=== PATIENT | male | born 1940 | race Caucasian/White ===

== ENCOUNTER 2017-06-16 05:34 | Inpatient (IN) ==
[2017-06-09 10:58] LABS: Basophils % 1.1 % (0.0-0.8); Eosinophils # 0.1 10*3/uL (0.0-0.87); Eosinophils % 1.6 % (0.00-10.9); Hematocrit 36.1 VOL% (42.0-52.0); Hemoglobin 12.4 GM/DL (14.0-18.0); Lymphocytes # 1.9 10*3/uL (1.4-4.0); Lymphocytes % 49.2 % (21.2-54.2); Mean Corpuscular HGB Conc 34.3 GM/DL (32-36); Mean Corpuscular Hemoglobin 32 PG (27-34); Mean Corpuscular Volume 94.3 FL (87-102); Monocytes # 0.4 10*3/uL (0.11-0.8); Monocytes % 10.1 % (1.7-12.7); Neutrophils # 1.4 10*3/uL (1.4-7.4); Platelet Count 159 T/CUMM (130-400); Red Blood Count 3.83 MC/CUMM (3.8-5.5); Red Cell Distribution Width 14.2 % (9.3-17.3); White Blood Count 3.8 T/CUMM (4-12)
[2017-06-09 11:14] LABS: INR 3.6
[2017-06-09 11:25] LABS: Eosinophils 2 % (0-10); Hypochromasia 1+; Lymphocytes 46 % (20-55); Platelet Estimate Adequate; Segmented Neutrophils 41 % (50-85); Total Cells Counted 100
[2017-06-09 11:29] LABS: Apearance,Urine CLEAR (Clear); Bilirubin,Urine Negative (Negative); Blood, Urine Small mg/dL (Negative); Glucose,Urine (UA) Negative (Negative); Ketones,Urine Negative (Negative); Mucus,Urine Occasional /LPF (Occasional); Nitrite,Urine Negative (Negative); Protein,Urine Negative; RBC,Urine 1 /HPF (0-4); Urine Color Yellow (Yellow); Urine Specific Gravity 1.006 (1.001-1.035); Urine Urobilinogen < 2.0 EU/DL (0.2-1.0); WBC,Urine <1 /HPF (0-6)
[2017-06-09 11:33] LABS: PT Patient Result 41.2 SECS; Partial Thromboplastin Time 46.2 SECS (0-40)
[2017-06-09 11:37] LABS: Albumin 3.8 G/DL (3.4-5.0); Bilirubin,Total 0.4 MG/DL (0.2-1.0); Calcium 8.8 MG/DL (8.5-10.1); Osmolality,Calculated 279.5 MOS/KG (273-304); Potassium 4.3 MMOL/L (3.5-5.1); Total Protein 6.8 G/DL (6.4-8.3)
--- NOTE | 2017-06-09 12:37 | XRay Report ---
XR chest 2V Indication: Preop evaluation Comparison: Chest x-ray dated May 07, 2016 Technique: Frontal and lateral views of the chest. Findings: The cardiomediastinal silhouette is stable in configuration. Continued borderline cardiomegaly. Chronic change of the lungs without focal consolidation, pleural effusion, or pneumothorax. Visualized osseous and surrounding soft tissue structures appear grossly unchanged. IMPRESSION: Stable chest x-ray without acute cardiopulmonary process demonstrated. PROCEDURE INTERPRETED AT [facility] DEPARTMENT OF RADIOLOGY Final Report Signed by: Dr Kirby Russell
[2017-06-16] MEDS ORDERED: VANCOMYCIN INJ 1,000 MG in SODIUM CHLORIDE 0.9% 250 ML IV ONE (06:00)
[2017-06-16] MEDS ORDERED: VANCOMYCIN 1,000 MG VIAL ONE (06:05)
[2017-06-16] MEDS ORDERED: ceFAZolin 1,000 MG VIAL ONE (06:05)
[2017-06-16] MEDS ORDERED: SODIUM CHLORIDE 0.9% 100 ML IV ONE (06:05)
[2017-06-16 06:59] LABS: INR 1.1; PT Patient Result 11.6 SECS; Partial Thromboplastin Time 29.9 SECS (0-40)
--- NOTE | 2017-06-16 07:06 | History and Physical Update ---
History and Physical Update - History and Physical H&P was reviewed, the patient examined and there: are no changes in the patients condition since last H&P was completed.
[2017-06-16] MEDS: LACTATED RINGERS 1,000 ML IV SCH (08:00)
[2017-06-16] MEDS ORDERED: TRANEXAMIC ACID 1,000 MG/10 ML VIAL IV ONE (09:31)
[2017-06-16] MEDS ORDERED: ONDANSETRON 4 MG/2 ML VIAL ONE (10:20)
[2017-06-16] MEDS ORDERED: PROPOFOL 200 MG/20 ML VIAL IV ONE (10:20)
[2017-06-16] MEDS ORDERED: PHENYLEPHRINE 1 MG/10 ML SYRINGE IV ONE (10:20)
[2017-06-16] MEDS ORDERED: GLYCOPYRROLATE 0.4 MG/2 ML VIAL ONE (10:20)
[2017-06-16] MEDS ORDERED: ONDANSETRON 4 MG/2 ML VIAL IV PRN (10:33)
[2017-06-16] MEDS ORDERED: TEMAZEPAM 7.5 MG CAPSULE PO PRN (10:33)
[2017-06-16] MEDS ORDERED: MAGNESIUM HYDROXIDE SUSP 30 ML UDCUP PO PRN (10:33)
[2017-06-16] MEDS ORDERED: PROMETHAZINE 25 MG/1 ML VIAL IM PRN (10:33)
[2017-06-16] MEDS ORDERED: HYDROmorphone 2 MG/1 ML VIAL IV PRN (10:33)
[2017-06-16] MEDS ORDERED: BISACODYL 10 MG SUPP RECTAL PRN (10:33)
[2017-06-16] MEDS ORDERED: LACTULOSE 20 GM/30 ML UDCUP PO PRN (10:33)
[2017-06-16] MEDS ORDERED: NALOXONE 0.4 MG/ML VIAL IV PRN (10:33)
[2017-06-16] MEDS ORDERED: DEXTROSE 50% 25 GM/50 ML VIAL IV PRN (10:38)
[2017-06-16] MEDS ORDERED: GLUCAGON 1 MG VIAL IM PRN (10:38)
[2017-06-16] MEDS ORDERED: PRAVASTATIN 20 MG TABLET PO SCH (11:00)
[2017-06-16] MEDS: INSULIN REGULAR 100 UNIT/ML SUBCUT SCH ×3 (11:30→23:29)
[2017-06-16] MEDS ORDERED: MIDAZOLAM 2 MG/2 ML VIAL ONE (12:06)
[2017-06-16] MEDS ORDERED: fentaNYL 100 MCG/2 ML VIAL ONE (12:06)
[2017-06-16] MEDS ORDERED: ACETAMINOPHEN 1,000 MG/100 ML VIAL IV ONE (12:07)
[2017-06-16] MEDS: HYDROmorphone PCA 30 MG/30 ML SYRINGE IV SCH (12:13)
[2017-06-16] MEDS ORDERED: ROPIVACAINE 0.5% 30 ML VIAL ONE (12:13)
--- NOTE | 2017-06-16 12:48 | Anesthesia Post-Op ---
Anesthesia Post OP - Post Ansesthetic Evaluation Patient seen in post op: Yes Resp: within normal limits CV: within normal limits Mental: within normal limits Temp: within normal limits [id number]: within normal limits Nausea and Vomiting: within normal limits Pain: within normal limits
--- NOTE | 2017-06-16 14:46 | XRay Report ---
History: Postop joint replacement Date: 06/16/2017 Study: Right knee 2 views Comparison exam: July 14, 2011 The right knee prosthesis is well conjugated. There is no radiographic evidence of postsurgical complication. Surgical skin heather and drains overlie the soft tissues anterior to the knee. Impression: Postop right knee replacement PROCEDURE INTERPRETED AT [facility] DEPARTMENT OF RADIOLOGY Final Report Signed by: Dr. Jeanette Portillo
--- NOTE | 2017-06-16 14:48 | Cardiology Consult Note ---
Assessment and Plan - Time spent with patient Time spent with patient: Greater than 30 minutes (Documentation, examination, chart review and orders) (1) Paroxysmal atrial fibrillation Status: Chronic Current Visit: Yes (2) Coronary artery disease Status: Chronic Current Visit: No (3) History of percutaneous coronary intervention Status: Chronic Current Visit: No (4) Gastroesophageal reflux disease Status: Chronic Current Visit: No Qualifiers: Esophagitis presence: without esophagitis Qualified Code(s): K21.9 - Gastro -esophageal reflux disease without esophagitis (5) Dyslipidemia Status: Chronic Current Visit: No (6) Osteoarthritis Status: Chronic Current Visit: Yes Qualifiers: Osteoarthritis location: multiple joints Osteoarthritis type: primary Qualified Code(s): M15.0 - Primary generalized (osteo)arthritis (7) Status post total knee replacement, right Status: Acute Current Visit: Yes History of Present Illness - Data of Consult Patient: known to practice within the last 3 years Consult date: 06/16/17 Requesting Physician: Viktor Evans Jr. Primary care physician: Dexter Keys - Consult Narrative Reason for consult: Follow post op History of present illness: Mr. Anderson is a 76 year old male patient of Dr. Kiko Farley who is admitted for elective right total knee replacement for advanced osteoarthritis. He has known coronary disease and received a 2.5 x 24 mm Synergy overlapping with a 3.0 x 12 mm Synergy to the RCA after aspiration thrombectomy in April 2016. The patient's clopidogrel was held prior to the surgery. The patient also has atrial fibrillation. He is on warfarin anticoagulation. These anticoagulants have been resumed postoperatively. The patient denies any chest pain or shortness of breath. An uneventful perioperative course and also postoperatively on the floor. CC: Viktor Evans Jr., MD - Home Medications and Allergies Home Medications: Home Medications Medication Instructions Recorded Confirmed Type Furosemide Tab [Lasix Tab] 20 mg PO DAILY 07/02/15 06/16/17 History Gabapentin Cap/Tab [Neurontin 300 mg PO BID 07/02/15 06/16/17 History Cap/Tab] Multivitamin [Multivitamins] 1 each PO DAILY 07/02/15 06/16/17 History Potassium Chloride 10 meq PO DAILY 07/02/15 06/16/17 History Metoprolol Succinate 25 mg PO DAILY 05/06/16 06/16/17 History Clopidogrel [Plavix] 75 mg PO DAILY 06/09/17 06/16/17 History Cyanocobalamin (Vitamin B-12) 2,500 mcg PO DAILY 06/09/17 06/16/17 History [Vitamin B-12] Esomeprazole Magnesium [Nexium] 40 mg PO DAILY 06/09/17 06/16/17 History Metformin HCl 1,000 mg PO BID 06/09/17 06/16/17 History PARoxetine HCl [Paxil Cr] 25 mg PO DAILY 06/09/17 06/16/17 History Pravastatin [Pravachol] 40 mg PO BEDTIME 06/09/17 06/16/17 History Warfarin [Coumadin] 5 mg PO DAILY@1800 06/09/17 06/16/17 History Ferrous Sulfate Tab [Feosol 325 mg PO DAILY 06/16/17 06/16/17 History Original Tab] Allergies/Adverse Reactions: Allergies Allergy/AdvReac Type Severity Reaction Status Date / Time No Known Allergies Allergy Verified 06/16/17 07:28 - Constitutional Constitutional: Absent: anorexia, chills, frequent falls, headache(s), weakness , weight loss - EENT Eyes: Absent: blurry vision Nose, mouth and throat: Absent: dysphagia, epistaxis, lip swelling - Cardiovascular Cardiovascular: Absent: chest pain at rest, chest pain with activity, dyspnea, dyspnea on exertion, edema, orthopnea, palpitations - Respiratory Respiratory: Absent: dyspnea, dyspnea on exertion - Gastrointestinal Gastrointestinal: Absent: abdominal pain, bloating, fecal incontinence, heartburn, hematemesis, melena - Genitourinary Genitourinary: Absent: difficulty urinating, hematuria - Musculoskeletal Musculoskeletal: Present: arthralgias. Absent: joint swelling - Neurological Neurological: Absent: abnormal gait, disequilibrium, focal weakness, frequent falls, headache(s), memory loss - Psychiatric Psychiatric: Absent: anxiety, depression - Endocrine Endocrine: Absent: cold intolerance, heat intolerance - Hematologic/Lymphatic Hematologic/Lymphatic: Absent: easy bleeding, easy bruising Medical,Surgical,& Family Hx - Medical History Cardio: History of: Hypertension, CA (PCI the RCA after aspiration thrombectomy in April 2016), Cardiovascular Problems (Atrial fibrillation with chronic anticoagulation) Neurology: History of: Peripheral Neuropathy No history of: Seizures HEENT: History of: Ear Problem (HEARING AIDS.), Eye Problem (GLASSES), Dental Problems (UPPER DENTURE PARTIAL LOWER) Endocrine: History of: Diabetes Mellitus (NIDDM), Dyslipidemia Respiratory: History of: Obstructive Sleep Apnea (PT USES CPAP) Comment Only: Respiratory Problems (FLU VAC-YES; PNEU VAC- YES 2016.) Gastrointestinal: History of: GERD, Hemorrhoids (OCCASIONAL), GI Problems ( HITAL HERNIA) Musculoskeletal: History of: Back/Neck Problems (NECK PAIN OCCASIONAL.) Other: History of: Cancer (SKIN CA), MRSA (RT KNEE AND RT GROIN. 2013.) - Surgical History Cardiac Surgeries: Sugical HX of: Cardiac Catheterization (stent x 2 as per HPI) Thoracic Surgeries: Patient denies;: Lobectomy Neurologic Surgeries: Patient denies: Neurologic Surgery HEENT Surgeries: Surgical HX of: Eye Surgery (VASYL CATARACT SURGERY), Tonsilectomy & Adenoidectomy Abdominal Surgeries: Surgical HX of: Colonoscopy (DR RAHMAN), EGD Patient denies: Abdominal Surgery Orthopedic Surgeries: Surgical HX of;: Orthopedic Surgery (LEFT SHOULDER REPLACEMENT. DR DUTTON.), Total Knee Replacement (Right) - Family History Family History: Denies;: Family Anesthesia Reaction, Family Cancer, Family Diabetes, Family Heart Disease, Family Hypertension, Family Psychiatric Problems, Family Stroke - Social History Smoking Status: Never smoker Frequency of Alcohol Use: None Type of Drug Use: None Marital Status: Lives With:: Spouse Functional capacity: independent ambulation (Retired [employer]) Physical Examination Vital Signs Temp Pulse Resp BP Pulse Ox 97.9 F 57 L 20 115/67 96 06/16/17 07:44 06/16/17 07:44 06/16/17 07:44 06/16/17 07:44 06/16/17 07:44 General: Present: Appears Well HEENT: Present: PERRL, Mucus Membranes Moist. Absent: Jaundice Neck: Present: Supple Neck, Midline Trachea Cardiac: Present: Reg Rate and Rhythm Lungs: Present: Normal Exam Neuro: Present: Cranial Nerve 2-12 Intact Abdomen: Present: Soft, Active Bowel Sounds Skin: Present: Clear. Absent: Rash Extremities: Absent: Edema, Clubbing, Cyanosis Result/EKG - Labs CBC & BMP: 06/09/17 10:50 06/09/17 10:50 Labs: Laboratory Results - last 24 hr 06/16/17 06/16/17 06/16/17 06:34 06:34 06:36 INR 1.1 PT Patient/Control Mix 11.6 D Circ Anticoag PTT 29.9 D POC Glucose 123 H Blood Type A POSITIVE Antibody Screen Negative
--- NOTE | 2017-06-16 15:14 | EKG Report ---
Stationary ECG Study [facility] Test Date: 06/16/2017 3:17:24 PM Pat Name: CHEYENNE GOTTI Department: Room: 319 Gender: M Scrap Wheeler: : [id number] Requested by: Neville Fernández Order Number: [id number] Reading MD: CHADWICK LOZOYA Intervals [place] Rate: 47 P: 49 [place]: 192 QRS: 6 QRSD: 85 T: 55 QT: 448 QTc: 410 Interpretive Statements SINUS BRADYCARDIA LOW QRS VOLTAGE IN PRECORDIAL LEADS Electronically Signed On 06-17-17 12:30:35 CDT by CHADWICK LOZOYA [email or web address]
--- NOTE | 2017-06-16 16:54 | Operative Note ---
DATE OF SURGERY: 06/16/2017 PREOPERATIVE DIAGNOSIS: OSTEOARTHRITIS, RIGHT KNEE. POSTOPERATIVE DIAGNOSIS: SAME. OPERATIVE PROCEDURE: RIGHT TOTAL KNEE ([place]E). SURGEON: Viktor Evans Jr., MD ANESTHESIA: Spinal. INDICATIONS: A 76-year-old white male with longstanding osteoarthritis to his right knee. He is max imized conservative treatments to the years including oral agents as well as injections. He recently presented and felt to be a candidate for a total knee, presented in today for elective procedure. OPERATIVE PROCEDURE: The patient was taken to the operating room and under spinal anesthetic, positio laya in supine position. The right leg positioned, prepped, draped in a usual sterile manner. The li mb was elevated, exsanguinated, and the tourniquet inflated to 300 mmHg. A midline incision was made over the anterior aspect of the right knee. Sharp dissection was carried down through skin and subc utaneous tissue. A median parapatellar arthrotomy performed with the knee revealing extensive tricom partmental degenerative changes. Intramedullary alignment guides were used to make the appropriate c uts about the distal femur and proximal tibia. The femur was sized to a 7, the tibia to a 7 as well. A 7 mm poly spacer selected. The PCL retained. The patellar resurfaced with a 38 button. After r emoval of the trial components, all three implants were cemented into place. The knee was irrigated. The tourniquet deflated during wound closure at 43 minutes. It was closed over two 1/8th-inch Hemo vac drains in a standard fashion using #1 Vicryl for the arthrotomy, 2-0 Vicryl for the subcutaneous layer, and heather for skin. Sterile dressing applied. He was taken to recovery room in a stable co ndition.
[2017-06-16] MEDS: WARFARIN 5 MG TABLET PO SCH (18:03)
[2017-06-16] MEDS: ceFAZolin 2,000 MG in PREMIX 1 EACH IV SCH (18:04)
[2017-06-16] MEDS: metFORMIN 500 MG TABLET PO SCH (21:31)
[2017-06-16] MEDS: PRAVASTATIN 40 MG TABLET PO SCH (21:31)
[2017-06-16] MEDS: FONDAPARINUX 2.5 MG/0.5 ML SYRINGE SUBCUT SCH (21:31)
[2017-06-16] MEDS: GABAPENTIN 300 MG CAPSULE PO SCH (21:32)
[2017-06-16] MEDS: DOCUSATE SODIUM 100 MG CAPSULE PO SCH (21:32)
[2017-06-17] MEDS: ceFAZolin 2,000 MG in PREMIX 1 EACH IV SCH (02:32)
[2017-06-17] MEDS: LACTATED RINGERS 1,000 ML IV SCH ×2 (04:32→22:42)
[2017-06-17 06:55] LABS: Basophils % 0.3 % (0.0-0.8); Eosinophils % 0.2 % (0.00-10.9); Hematocrit 32.4 VOL% (42.0-52.0); Immature Granulocytes % 0.6 %; Immature Granulocytes Absolute 0.04 #; Lymphocytes # 1.2 10*3/uL (1.4-4.0); Mean Corpuscular Hemoglobin 32 PG (27-34); Mean Corpuscular Volume 95.3 FL (87-102); Mean Platelet Volume 11.3 FL (9.6-12.0); Monocytes # 0.7 10*3/uL (0.11-0.8); Monocytes % 10.4 % (1.7-12.7); Neutrophils # 4.6 10*3/uL (1.4-7.4); Neutrophils % 70.5 % (38.7-73.9); Platelet Count 157 T/CUMM (130-400); Red Cell Distribution Width 13.9 % (9.3-17.3); White Blood Count 6.6 T/CUMM (4-12)
[2017-06-17 07:21] LABS: Calcium 8.4 MG/DL (8.5-10.1); Osmolality,Calculated 282.5 MOS/KG (273-304); Potassium 4.3 MMOL/L (3.5-5.1)
--- NOTE | 2017-06-17 07:50 | Orthopedic Progress Note ---
Orthopedics - Subjective Interval history: Comfortable hemoglobin 11 drain removed ready to start PT discharge planning for rehab Exam - Constitutional Vitals: Period Temp Pulse Resp BP Sys/Turner Pulse Ox Last 24 Hr 97 F-97.9 F 46-71 14-20 106-129/58-75 94-100 Results - Labs CBC & BMP: 06/17/17 06:32 06/17/17 06:32
[2017-06-17] MEDS ORDERED: IRON 65 MG PO SCH (09:00)
[2017-06-17] MEDS ORDERED: PANTOPRAZOLE 40 MG TABLET PO SCH (09:00)
[2017-06-17] MEDS ORDERED: PAXIL 25 MG PO SCH (09:00)
--- NOTE | 2017-06-17 09:59 | Cardiology Progress Note ---
Assessment and Plan (1) Paroxysmal atrial fibrillation Status: Chronic Current Visit: Yes (2) Coronary artery disease Status: Chronic Assessment and plan: No chest pain or heart failure decompensation Current Visit: No Qualifiers: Coronary Disease-Associated Artery/Lesion type: [place] artery (3) History of percutaneous coronary intervention Status: Chronic Assessment and plan: Back on dual antiplatelet therapy Current Visit: No (4) Gastroesophageal reflux disease Status: Chronic Current Visit: No Qualifiers: Esophagitis presence: without esophagitis Qualified Code(s): K21.9 - Gastro -esophageal reflux disease without esophagitis (5) Dyslipidemia Status: Chronic Current Visit: No (6) Osteoarthritis Status: Chronic Current Visit: Yes Qualifiers: Osteoarthritis location: multiple joints Osteoarthritis type: primary Qualified Code(s): M15.0 - Primary generalized (osteo)arthritis (7) Status post total knee replacement, right Status: Acute Current Visit: Yes Cardiology - PN: Subj Interval history: Mr. Anderson is complaining today that he is having some myoclonic jerks. This is new for him. I will review his medications and see if there is anything that may be contributing. No other complaints no chest pain no shortness of breath. Exam (Progress Note) - Constitutional Vitals: Period Temp Pulse Resp BP Sys/Turner Pulse Ox Last 24 Hr 97 F-97.9 F 46-71 14-20 106-129/58-75 94-100 General appearance: over weight - Eye Eye exam: Present: EOMI Pupils: Present: ANGEL - Respiratory Respiratory exam: Present: clear to auscultation bilaterally - Cardiovascular Cardiovascular exam: Present: regular rate and rhythm (No gallop.) - GI/Abdominal GI/Abdominal exam: Present: normal bowel sounds - Neurological Exam Neurological exam: Present: alert, oriented X3, other (Foot and hand tremor course) - Psychiatric Psychiatric exam: Present: normal affect Result/EKG - Labs CBC & BMP: 06/17/17 06:32 06/17/17 06:32 Labs: Laboratory Results - last 24 hr 06/16/17 06/16/17 06/17/17 16:45 21:01 06:32 WBC 6.6 RBC 3.40 L Hgb 11.0 L Hct 32.4 L MCV 95.3 MCH 32 MCHC 34.0 RDW 13.9 Plt Count 157 MPV 11.3 Neut % (Auto) 70.5 Lymph % (Auto) 18.0 L [place] % (Auto) 10.4 Eos % (Auto) 0.2 Baso % (Auto) 0.3 Neut # (Auto) 4.6 Lymph # (Auto) 1.2 L [place] # (Auto) 0.7 Eos # (Auto) 0.0 Baso # (Auto) 0.0 Immature Gran % 0.6 Nucleated RBC % 0.0 Immature Gran # 0.04 Nucleated RBCs # 0.00 Sodium Potassium Chloride Carbon Dioxide Anion Gap BUN Creatinine GFR Calculation BUN/Creatinine Ratio Glucose POC Glucose 83 147 H Calculated Osmolality Calcium 06/17/17 06/17/17 06:32 07:12 WBC RBC Hgb Hct MCV MCH MCHC RDW Plt Count MPV Neut % (Auto) Lymph % (Auto) [place] % (Auto) Eos % (Auto) Baso % (Auto) Neut # (Auto) Lymph # (Auto) [place] # (Auto) Eos # (Auto) Baso # (Auto) Immature Gran % Nucleated RBC % Immature Gran # Nucleated RBCs # Sodium 139 Potassium 4.3 Chloride 104 Carbon Dioxide 30 Anion Gap 9.3 BUN 21 H Creatinine 0.90 GFR Calculation 96 BUN/Creatinine Ratio 23.00 H Glucose 145 H POC Glucose 214 H Calculated Osmolality 282.5 Calcium 8.4 L
[2017-06-17] MEDS: INSULIN REGULAR 100 UNIT/ML SUBCUT SCH ×4 (10:13→21:15)
[2017-06-17] MEDS: FERROUS SULFATE 325 MG TABLET PO SCH (10:16)
[2017-06-17] MEDS: CYANOCOBALAMIN 500 MCG TABLET PO SCH (10:16)
[2017-06-17] MEDS: metFORMIN 500 MG TABLET PO SCH ×2 (10:16→21:16)
[2017-06-17] MEDS: CLOPIDOGREL 75 MG TABLET PO SCH (10:16)
[2017-06-17] MEDS: MULTIVITAMIN (CENTRUM) TABLET PO SCH (10:16)
[2017-06-17] MEDS: DOCUSATE SODIUM 100 MG CAPSULE PO SCH ×2 (10:16→21:17)
[2017-06-17] MEDS: METOPROLOL SUCCINATE XL 25 MG TABLET PO SCH (10:16)
[2017-06-17] MEDS: POTASSIUM CHLORIDE 10 MEQ TABLET PO SCH (10:17)
[2017-06-17] MEDS: FUROSEMIDE 20 MG TABLET PO SCH (10:18)
[2017-06-17] MEDS: GABAPENTIN 300 MG CAPSULE PO SCH ×2 (10:18→21:16)
[2017-06-17] MEDS ORDERED: GLUCAGON 1 MG VIAL IM PRN (11:22)
[2017-06-17] MEDS ORDERED: DEXTROSE 50% 25 GM/50 ML VIAL IV PRN (11:22)
--- NOTE | 2017-06-17 11:27 | Pathology Report from [facility] ---
[facility] [place] ACCESSION # : [id number] PATIENT NAME : Ana María Cheyenne Troy ORDERING DR : MUNA CASTELLANO JR, MD CLINICAL HX: Severe osteoarthritis POST-OP DX: Same SPECIMEN INFO: Bone & tissue RT knee GROSS DESCRIPTION: Received in formalin labeled CHEYENNE GOTTI are multiple fragments of bone, soft tissue and cartilage measuring 15.0 x 7.0 cm in aggregate. The articular surfaces are focally degenerative with areas of subchondral eburnation seen. Sales Engineering Manager tissue is submitted in one cassette. DIAGNOSIS FOR CHEYENNE SABILLONSR. Jaylene: BONE & TISSUE RIGHT KNEE, TOTAL REPLACEMENT : Osteoarthritis. COLLECTED DATE: 06/16/2017 [facility] REPORT DATE: 06/17/2017 ELECTRONICALLY SIGNED BY: Josefina Rooney M.D. 06/17/2017 - 9:58:52 [facility]
[2017-06-17] MEDS: HYDROmorphone PCA 30 MG/30 ML SYRINGE IV SCH (13:15)
[2017-06-17] MEDS: WARFARIN 5 MG TABLET PO SCH (17:44)
[2017-06-17] MEDS: PRAVASTATIN 40 MG TABLET PO SCH (21:17)
[2017-06-17] MEDS: FONDAPARINUX 2.5 MG/0.5 ML SYRINGE SUBCUT SCH (21:17)
[2017-06-18] MEDS ORDERED: PANTOPRAZOLE 40 MG TABLET PO ONE (00:05)
[2017-06-18] MEDS: LACTATED RINGERS 1,000 ML IV SCH (01:50)
[2017-06-18 05:51] LABS: Basophils % 0.3 % (0.0-0.8); Eosinophils % 0.2 % (0.00-10.9); Hematocrit 28.7 VOL% (42.0-52.0); Hemoglobin 9.8 GM/DL (14.0-18.0); Immature Granulocytes % 0.5 %; Immature Granulocytes Absolute 0.03 #; Lymphocytes # 1.1 10*3/uL (1.4-4.0); Mean Corpuscular HGB Conc 34.1 GM/DL (32-36); Mean Corpuscular Hemoglobin 32 PG (27-34); Mean Corpuscular Volume 94.7 FL (87-102); Mean Platelet Volume 11.7 FL (9.6-12.0); Monocytes # 1.1 10*3/uL (0.11-0.8); Monocytes % 16.6 % (1.7-12.7); Neutrophils # 4.3 10*3/uL (1.4-7.4); Neutrophils % 65.4 % (38.7-73.9); Platelet Count 147 T/CUMM (130-400); Red Blood Count 3.03 MC/CUMM (3.8-5.5); Red Cell Distribution Width 13.6 % (9.3-17.3); White Blood Count 6.6 T/CUMM (4-12)
[2017-06-18 06:17] LABS: Hypochromasia 1+; Lymphocytes 23 % (20-55); Platelet Estimate Normal; Segmented Neutrophils 65 % (50-85); Total Cells Counted 100
[2017-06-18 06:18] LABS: Microcytosis Slight
[2017-06-18] MEDS: INSULIN REGULAR 100 UNIT/ML SUBCUT SCH ×4 (07:29→21:10)
[2017-06-18] MEDS: CYANOCOBALAMIN 500 MCG TABLET PO SCH (09:44)
[2017-06-18] MEDS: PANTOPRAZOLE 40 MG TABLET PO SCH (09:44)
[2017-06-18] MEDS: CLOPIDOGREL 75 MG TABLET PO SCH (09:44)
[2017-06-18] MEDS: DOCUSATE SODIUM 100 MG CAPSULE PO SCH ×2 (09:44→22:19)
[2017-06-18] MEDS: FERROUS SULFATE 325 MG TABLET PO SCH (09:45)
[2017-06-18] MEDS: FUROSEMIDE 20 MG TABLET PO SCH (09:45)
[2017-06-18] MEDS: METOPROLOL SUCCINATE XL 25 MG TABLET PO SCH (09:45)
[2017-06-18] MEDS: metFORMIN 500 MG TABLET PO SCH ×2 (09:45→22:19)
[2017-06-18] MEDS: GABAPENTIN 300 MG CAPSULE PO SCH ×2 (09:46→22:20)
[2017-06-18] MEDS: MULTIVITAMIN (CENTRUM) TABLET PO SCH (09:46)
[2017-06-18] MEDS: POTASSIUM CHLORIDE 10 MEQ TABLET PO SCH (09:46)
--- NOTE | 2017-06-18 10:22 | Orthopedic Progress Note ---
Orthopedics - Subjective Interval history: Progressing well with PT H&H stable dressing dry instructed to rehab tomorrow Exam - Constitutional Vitals: Period Temp Pulse Resp BP Sys/Turner Pulse Ox Last 24 Hr 97.9 F-101.3 F 69-80 16-20 116-144/63-96 90-95 Results - Labs CBC & BMP: 06/18/17 04:41 06/17/17 06:32
--- NOTE | 2017-06-18 10:24 | Discharge Summary ---
Hospital Course - Hospital Course Hospital Course: Elective admission for total knee arthroplasty on right discharged to rehab Diagnosis - Discharge Diagnosis (1) Osteoarthritis of right knee Status: Acute Discharge Plan - Discharge Data Disposition: Swing Bed, Hos Based, [facility] [place] Discharge Diet: advance to your usual diet Activity: ambulate only with your walker, as per physical therapy, increase activity as tolerated Hygiene: may shower, keep area(s) dry Weight Bearing at Discharge: weight bear as tolerated - Discharge Medications New HYDROcodone/ACETAMIN 7.5-325 [[place] 7.5-325] 1 tablet PO Q4H PRN #30 tablet PRN Reason: Pain Moderate (4-7) Continue Multivitamin [Multivitamins] 1 each PO DAILY Gabapentin Cap/Tab [Neurontin Cap/Tab] 300 mg PO BID Furosemide Tab [Lasix Tab] 20 mg PO DAILY Potassium Chloride 10 meq PO DAILY Metoprolol Succinate 25 mg PO DAILY Cyanocobalamin (Vitamin B-12) [Vitamin B-12] 2,500 mcg PO DAILY PARoxetine HCl [Paxil Cr] 25 mg PO DAILY Esomeprazole Magnesium [Nexium] 40 mg PO DAILY Clopidogrel [Plavix] 75 mg PO DAILY Warfarin [Coumadin] 5 mg PO DAILY@1800 Pravastatin [Pravachol] 40 mg PO BEDTIME Metformin HCl 1,000 mg PO BID Ferrous Sulfate Tab [Feosol Original Tab] 325 mg PO DAILY - Follow Up or Referral - Forms/Instructions Additional Discharge Instructions: Discharge or rehab/swing bed continue home medications including his warfarin. [place] to be used for pain weightbearing as tolerated total knee protocol with walker CPM heather to be removed June 30 and wound Steri-Stripped. Follow-up 4 weeks Exam - Constitutional Vitals: Period Temp Pulse Resp BP Sys/Turner Pulse Ox Last 24 Hr 97.9 F-101.3 F 69-80 16-20 116-144/63-96 90-95 Discharge Results Labs on day of discharge: Labs from last 24 hours 06/18/17 06/18/17 06/17/17 07:03 04:41 20:07 WBC 6.6 RBC 3.03 L Hgb 9.8 L Hct 28.7 L MCV 94.7 MCH 32 MCHC 34.1 RDW 13.6 Plt Count 147 MPV 11.7 Neut % (Auto) 65.4 Lymph % (Auto) 17.0 L [place] % (Auto) 16.6 H Eos % (Auto) 0.2 Baso % (Auto) 0.3 Neut # (Auto) 4.3 Lymph # (Auto) 1.1 L [place]lin # (Auto) 1.1 H Eos # (Auto) 0.0 Baso # (Auto) 0.0 Total Counted 100 Immature Gran % 0.5 Nucleated RBC % 0.0 Immature Gran # 0.03 Segmented Neutrophils 65 Lymphocytes 23 Monocytes 12 Nucleated RBCs # 0.00 Platelet Estimate Normal Hypochromasia 1+ Microcytosis Slight Morphology Comment POC Glucose 134 H 107 H 06/17/17 06/17/17 15:26 11:28 WBC RBC Hgb Hct MCV MCH MCHC RDW Plt Count MPV Neut % (Auto) Lymph % (Auto) [place]lin % (Auto) Eos % (Auto) Baso % (Auto) Neut # (Auto) Lymph # (Auto) Collin # (Auto) Eos # (Auto) Baso # (Auto) Total Counted Immature Gran % Nucleated RBC % Immature Gran # Segmented Neutrophils Lymphocytes Monocytes Nucleated RBCs # Platelet Estimate Hypochromasia Microcytosis Morphology Comment POC Glucose 134 H 174 H DS: Provider Date of admission: 06/16/17 05:34 Primary care physician: Jessica De La Cruz NP Attending physician on admission: Viktor Evans Jr., MD Consults: 06/16/17 10:33 Consult to Case Mgmt/Social Srvs [CONS] Routine Reason for Case Mgmt/Social Srvs: Rehab Home Health Equipment Consult Comment: Bedside Commode, CPM, Walker Consult to Occupational Therapy [CONS] Routine Reason for Occupational Therapy: Evaluate and Treat Consult Comment: ADL's Consult to Physical Therapy [CONS] Routine Reason for Physical Therapy: Evaluate and Treat Gait Training 06/16/17 10:35 Consult to Physician [CONS] Routine Comment: Consulting Provider: Maximiliano Farley Consulting Provider Notified: Yes When should Consulting Provider be notified: Now Person Notified: shirlene whyte Date Notified: 06/16/17 Time Notified: 13:11 Discharging clinician: Viktor Evans Jr., MD
--- NOTE | 2017-06-18 17:37 | Cardiology Progress Note ---
Justin Amato Vanessa RN, am scribing for, and in the presence of, Fina Villalba DO 17 :37. Assessment and Plan - Time spent with patient Time spent with patient: Greater than 30 minutes (1) Status post total knee replacement, right Status: Acute Assessment and plan: Status post total right knee replacement per Dr. Evans. Patient is not having any anginal complaint postoperatively. Both Plavix and Coumadin have been resumed postoperatively. Current Visit: Yes (2) Paroxysmal atrial fibrillation Status: Chronic Assessment and plan: EKG has demonstrated sinus rhythm this admit. He is maintained with beta- danuta and anticoagulated with Coumadin for stroke prevention. Current Visit: Yes (3) Coronary artery disease Status: Chronic Assessment and plan: Patient is not having any anginal complaint. Continue Plavix, statin, beta- danuta. Current Visit: No Qualifiers: Coronary Disease-Associated Artery/Lesion type: [place] artery (4) Dyslipidemia Status: Chronic Assessment and plan: Statin has been continued. Current Visit: No (5) Gastroesophageal reflux disease Status: Chronic Assessment and plan: Stable. He does not take a routine PPI. Current Visit: No Qualifiers: Esophagitis presence: without esophagitis Qualified Code(s): K21.9 - Gastro -esophageal reflux disease without esophagitis (6) History of percutaneous coronary intervention Status: Chronic Assessment and plan: Continue current plan of care. Patient is not having any anginal complaint. Current Visit: No Cardiology - PN: Subj Interval history: PRIMARY QUALITY ASSURANCE TEST PROGRAM MANAGER: DR. MATIAS SUMMARY: Mr. Anderson is a 76-year-old white male with whose past medical history includes CAD and previous percutaneous coronary intervention in April 2016, paroxysmal atrial fibrillation, chronic anticoagulation, hypertension, dyslipidemia, osteoarthritis. He was admitted on June 16 for elective total right knee replacement due to advancement of OA. Patient had uneventful intraoperative and perioperative course. Plavix and Coumadin were both held preoperatively, and both anticoagulants have been resumed postoperatively. Cardiology was asked to see patient for cardiac medical management in the perioperative period. May: Patient is awake and alert this morning. No acute changes or new findings in hemodynamic status overnight. Temperature last night up to 101.3F, improved today with most recent 98.7F. Vitals otherwise stable. He is completing PT this morning, and he is not having any anginal complaint. Surgical discomfort is overall well controlled with pain medication. Patient is not having any further myoclonic jerks or complaints related to this today. Reports he is currently experiencing chills. Hemoglobin with slight decrease from 11 to 9 today. From a cardiac standpoint, patient appears to be doing well overall. He has no complaints and anticipating discharge soon. Plan on checking INR tomorrow morning Exam (Progress Note) - Constitutional Vitals: Period Temp Pulse Resp BP Sys/Turner Pulse Ox Last 24 Hr 97.9 F-101.3 F 69-80 16-20 116-144/63-96 90-95 General appearance: no acute distress, over weight - Head Head exam: Present: normal inspection. Absent: abrasion, contusion, hematoma - Eye Eye exam: Absent: periorbital swelling Pupils: Present: ANGEL. Absent: dilated, fixed - ENT ENT exam: Present: normal external ear exam - Neck Neck exam: Absent: tenderness - Respiratory Respiratory exam: Present: clear to auscultation bilaterally. Absent: rales, rhonchi, stridor, wheezes - Cardiovascular Cardiovascular exam: Present: regular rate and rhythm. Absent: JVD, systolic murmur - GI/Abdominal GI/Abdominal exam: Present: normal bowel sounds, rebound. Absent: ascites, distended, firm, mass, tenderness - Extremities Exam Extremities exam: Present: normal inspection, normal capillary refill, full ROM (Altered ROM of right lower extremity due to recent knee replacement), other ( Right knee surgical dressing dry/intact). Absent: calf tenderness, edema - Neurological Exam Neurological exam: Present: alert, oriented X3 - Psychiatric Psychiatric exam: Present: normal affect, normal mood. Absent: agitated, anxious, depressed - Skin Skin exam: Present: normal color, warm, dry. Absent: abrasion, cyanosis, diaphoretic, rash Result/EKG - Labs CBC & BMP: 06/18/17 04:41 06/17/17 06:32 Lab Results: I have reviewed the past 24 hour labs Labs: Laboratory Results - last 24 hr 06/17/17 06/17/17 06/17/17 11:28 15:26 20:07 WBC RBC Hgb Hct MCV MCH MCHC RDW Plt Count MPV Neut % (Auto) Lymph % (Auto) [place] % (Auto) Eos % (Auto) Baso % (Auto) Neut # (Auto) Lymph # (Auto) [place] # (Auto) Eos # (Auto) Baso # (Auto) Total Counted Immature Gran % Nucleated RBC % Immature Gran # Segmented Neutrophils Lymphocytes Monocytes Nucleated RBCs # Platelet Estimate Hypochromasia Microcytosis Morphology Comment POC Glucose 174 H 134 H 107 H 06/18/17 06/18/17 04:41 07:03 WBC 6.6 RBC 3.03 L Hgb 9.8 L Hct 28.7 L MCV 94.7 MCH 32 MCHC 34.1 RDW 13.6 Plt Count 147 MPV 11.7 Neut % (Auto) 65.4 Lymph % (Auto) 17.0 L [place] % (Auto) 16.6 H Eos % (Auto) 0.2 Baso % (Auto) 0.3 Neut # (Auto) 4.3 Lymph # (Auto) 1.1 L [place] # (Auto) 1.1 H Eos # (Auto) 0.0 Baso # (Auto) 0.0 Total Counted 100 Immature Gran % 0.5 Nucleated RBC % 0.0 Immature Gran # 0.03 Segmented Neutrophils 65 Lymphocytes 23 Monocytes 12 Nucleated RBCs # 0.00 Platelet Estimate Normal Hypochromasia 1+ Microcytosis Slight Morphology Comment POC Glucose 134 H - EKG EKG results: interpreted by me, no acute changes EKG shows: sinus rhythm Specialty Discharge - Follow Up or Referrals Follow up with: Viktor Evans Jr., MD [Physician] - 07/20/17 9:00 am IOrly Shea, DO, personally performed the services described in this documentation, ascribed by Mita Anderson RN in my presence, and it is both accurate and complete [id number] .
[2017-06-18] MEDS: WARFARIN 5 MG TABLET PO SCH (18:36)
[2017-06-18] MEDS: PRAVASTATIN 40 MG TABLET PO SCH (22:19)
[2017-06-19 05:15] LABS: INR 1.1; PT Patient Result 11.6 SECS
[2017-06-19] MEDS: INSULIN REGULAR 100 UNIT/ML SUBCUT SCH ×2 (07:30→11:00)
[2017-06-19] MEDS ORDERED: DEXTROSE 50% 25 GM/50 ML SYRINGE IV PRN (08:00)
--- NOTE | 2017-06-19 08:00 | Orthopedic Progress Note ---
Orthopedics - Subjective Interval history: Comfortable. Dressing clean, dry and intact. Right lower extremity neurovascularly change. Plan: Discharge to [facility] today. Exam - Constitutional Vitals: Period Temp Pulse Resp BP Sys/Turner Pulse Ox Last 24 Hr 97.3 F-99.3 F 70-83 18-20 117-142/63-78 90-100 Results - Labs CBC & BMP: 06/18/17 04:41 06/17/17 06:32 Specialty Discharge - Follow Up or Referrals Follow up with: Viktor Evans Jr., MD [Physician] - 07/20/17 9:00 am
[2017-06-19] MEDS: MULTIVITAMIN (CENTRUM) TABLET PO SCH (09:14)
[2017-06-19] MEDS: DOCUSATE SODIUM 100 MG CAPSULE PO SCH (09:14)
[2017-06-19] MEDS: FERROUS SULFATE 325 MG TABLET PO SCH (09:14)
[2017-06-19] MEDS: CLOPIDOGREL 75 MG TABLET PO SCH (09:15)
[2017-06-19] MEDS: metFORMIN 500 MG TABLET PO SCH (09:15)
[2017-06-19] MEDS: GABAPENTIN 300 MG CAPSULE PO SCH (09:15)
[2017-06-19] MEDS: FUROSEMIDE 20 MG TABLET PO SCH (09:15)
[2017-06-19] MEDS: POTASSIUM CHLORIDE 10 MEQ TABLET PO SCH (09:15)
[2017-06-19] MEDS: CYANOCOBALAMIN 500 MCG TABLET PO SCH (09:16)
[2017-06-19] MEDS: METOPROLOL SUCCINATE XL 25 MG TABLET PO SCH (09:16)
[2017-06-19] MEDS: PANTOPRAZOLE 40 MG TABLET PO SCH (09:16)
[2017-06-19 11:43] VITALS: BP 122/68
== END 2017-06-19 11:25 | disposition swing bed (61) | DRG 470 ==
LOC: N.SDSINP 05:34 → N.3E 12:52
PROVIDERS: ADMIT Orthopaedic Surgery; ATTEND Orthopaedic Surgery

== ENCOUNTER 2018-05-06 13:19 | Inpatient (IN) ==
[2018-05-06] MEDS ORDERED: VANCOMYCIN INJ 1,000 MG in SODIUM CHLORIDE 0.9% 250 ML IV STA (13:41)
[2018-05-06] MEDS ORDERED: KETOROLAC 30 MG/1 ML VIAL IV STA (13:41)
[2018-05-06 14:09] LABS: Basophils % 0.2 % (0.0-0.8); Hematocrit 37.7 VOL% (42.0-52.0); Hemoglobin 12.8 GM/DL (14.0-18.0); Immature Granulocytes % 0.6 %; Immature Granulocytes Absolute 0.06 #; Lymphocytes # 1.8 10*3/uL (1.4-4.0); Lymphocytes % 17.4 % (21.2-54.2); Mean Corpuscular Hemoglobin 33 PG (27-34); Mean Corpuscular Volume 96.4 FL (87-102); Mean Platelet Volume 11.2 FL (9.6-12.0); Monocytes # 0.8 10*3/uL (0.11-0.8); Neutrophils # 7.5 10*3/uL (1.4-7.4); Neutrophils % 73.8 % (38.7-73.9); Platelet Count 173 T/CUMM (130-400); Red Blood Count 3.91 MC/CUMM (3.8-5.5); Red Cell Distribution Width 14.6 % (9.3-17.3); White Blood Count 10.1 T/CUMM (4-12)
[2018-05-06 14:19] LABS: INR 1.9; PT Patient Result 19.6 SECS; Partial Thromboplastin Time 38.3 SECS (0-40)
[2018-05-06 14:30] LABS: Lactic Acid 5.1 MMOL/L (0.4-2.0)
[2018-05-06 14:37] LABS: Band Neutrophils 6 % (0-10); Lymphocytes 15 % (20-55); Segmented Neutrophils 71 % (50-85); Total Cells Counted 100; Troponin I Only < 0.015 NG/ML (0.00-0.045)
[2018-05-06 14:39] LABS: Platelet Estimate Normal
[2018-05-06] MEDS ORDERED: SODIUM CHLORIDE 0.9% 1,000 ML IV STA (14:47)
[2018-05-06 15:23] LABS: Albumin 3.3 G/DL (3.4-5.0); Calcium 8.7 MG/DL (8.5-10.1); Osmolality,Calculated 276.1 MOS/KG (273-304); Potassium 4.1 MMOL/L (3.5-5.1); Total Protein 7.5 G/DL (6.4-8.3)
[2018-05-06] MEDS ORDERED: DEXTROSE 50% 25 GM/50 ML VIAL IV PRN (16:23)
[2018-05-06] MEDS ORDERED: ONDANSETRON 4 MG/2 ML VIAL IV PRN (16:23)
[2018-05-06] MEDS ORDERED: GLUCAGON 1 MG VIAL IM PRN (16:23)
[2018-05-06] MEDS ORDERED: SODIUM CHLORIDE 0.9% 2,600 ML IV ONE (16:28)
[2018-05-06] MEDS ORDERED: WARFARIN 7.5 MG TABLET PO SCH (18:30)
[2018-05-06] MEDS ORDERED: NON-FORMULARY MEDICATION (Cyanocobalamin (Vitamin B-12) [Vitamin B-12] 2,500 MCG) PO SCH (19:00)
[2018-05-06] MEDS: PIPERACILLIN/TAZOBACTAM 3,375 MG in SODIUM CHLORIDE 0.9% 100 ML IV SCH (19:04)
[2018-05-06] MEDS: INSULIN REGULAR 100 UNIT/ML SUBCUT SCH ×2 (19:04→20:45)
[2018-05-06] MEDS: GABAPENTIN 300 MG CAPSULE PO SCH (19:04)
[2018-05-06 19:45] LABS: Lactic Acid 2.4 MMOL/L (0.4-2.0)
[2018-05-06] MEDS: metFORMIN 500 MG TABLET PO SCH (20:44)
[2018-05-06] MEDS: PRAVASTATIN 40 MG TABLET PO SCH (20:44)
[2018-05-06] MEDS: FERROUS SULFATE 325 MG TABLET PO SCH (20:44)
[2018-05-06] MEDS ORDERED: GENTAMICIN INJ 160 MG in SODIUM CHLORIDE 0.9% 100 ML IV SCH (22:00)
[2018-05-07] MEDS: PIPERACILLIN/TAZOBACTAM 3,375 MG in SODIUM CHLORIDE 0.9% 100 ML IV SCH ×3 (01:02→18:45)
[2018-05-07 05:29] LABS: Basophils % 0.3 % (0.0-0.8); Hematocrit 31.7 VOL% (42.0-52.0); Hemoglobin 10.4 GM/DL (14.0-18.0); Immature Granulocytes % 0.3 %; Immature Granulocytes Absolute 0.02 #; Lymphocytes # 1.1 10*3/uL (1.4-4.0); Lymphocytes % 15.7 % (21.2-54.2); Mean Corpuscular HGB Conc 32.8 GM/DL (32-36); Mean Corpuscular Hemoglobin 32 PG (27-34); Mean Corpuscular Volume 96.9 FL (87-102); Mean Platelet Volume 11.1 FL (9.6-12.0); Monocytes # 0.5 10*3/uL (0.11-0.8); Monocytes % 7.8 % (1.7-12.7); Neutrophils # 5.1 10*3/uL (1.4-7.4); Neutrophils % 75.9 % (38.7-73.9); Platelet Count 138 T/CUMM (130-400); Red Blood Count 3.27 MC/CUMM (3.8-5.5); Red Cell Distribution Width 14.6 % (9.3-17.3); White Blood Count 6.7 T/CUMM (4-12)
[2018-05-07 05:50] LABS: Calcium 7.8 MG/DL (8.5-10.1); Osmolality,Calculated 278.8 MOS/KG (273-304); Potassium 3.7 MMOL/L (3.5-5.1)
[2018-05-07 05:53] LABS: Band Neutrophils 28 % (0-10); Lymphocytes 12 % (20-55); Segmented Neutrophils 51 % (50-85); Total Cells Counted 100
[2018-05-07] MEDS: INSULIN REGULAR 100 UNIT/ML SUBCUT SCH ×4 (08:14→21:11)
[2018-05-07] MEDS: PANTOPRAZOLE 40 MG TABLET PO SCH (08:15)
[2018-05-07] MEDS ORDERED: PANTOPRAZOLE 40 MG TABLET PO SCH (09:00)
[2018-05-07] MEDS: POTASSIUM CHLORIDE 10 MEQ TABLET PO SCH (09:15)
[2018-05-07] MEDS: MULTIVITAMIN (CENTRUM) TABLET PO SCH (09:15)
[2018-05-07] MEDS: MAGNESIUM OXIDE 400 MG TABLET PO SCH (09:15)
[2018-05-07] MEDS: METOPROLOL SUCCINATE XL 25 MG TABLET PO SCH (09:16)
[2018-05-07] MEDS: metFORMIN 500 MG TABLET PO SCH ×2 (09:16→21:08)
[2018-05-07] MEDS: FUROSEMIDE 20 MG TABLET PO SCH (09:16)
[2018-05-07] MEDS: ASPIRIN EC 81 MG TABLET PO SCH (09:16)
[2018-05-07] MEDS: PARoxetine 10 MG TABLET PO SCH (09:17)
[2018-05-07] MEDS ORDERED: VANCOMYCIN INJ 1,250 MG in SODIUM CHLORIDE 0.9% 250 ML IV SCH (12:00)
[2018-05-07 18:30] LABS: INR 1.5; PT Patient Result 15.8 SECS
[2018-05-07] MEDS: GABAPENTIN 300 MG CAPSULE PO SCH (18:44)
[2018-05-07] MEDS: WARFARIN 5 MG TABLET PO SCH (18:44)
[2018-05-07] MEDS: FERROUS SULFATE 325 MG TABLET PO SCH (21:08)
[2018-05-07] MEDS: PRAVASTATIN 40 MG TABLET PO SCH (21:08)
[2018-05-08] MEDS: VANCOMYCIN INJ 1,250 MG in SODIUM CHLORIDE 0.9% 250 ML IV SCH ×2 (00:31→13:00)
[2018-05-08] MEDS: PIPERACILLIN/TAZOBACTAM 3,375 MG in SODIUM CHLORIDE 0.9% 100 ML IV SCH ×2 (03:00→09:07)
[2018-05-08 05:29] LABS: Basophils % 0.5 % (0.0-0.8); Eosinophils # 0.1 10*3/uL (0.0-0.87); Eosinophils % 0.9 % (0.00-10.9); Hematocrit 31.2 VOL% (42.0-52.0); Hemoglobin 10.6 GM/DL (14.0-18.0); Immature Granulocytes % 0.8 %; Immature Granulocytes Absolute 0.05 #; Lymphocytes # 1.3 10*3/uL (1.4-4.0); Lymphocytes % 19.9 % (21.2-54.2); Mean Corpuscular Hemoglobin 32 PG (27-34); Mean Corpuscular Volume 94.5 FL (87-102); Mean Platelet Volume 11.3 FL (9.6-12.0); Monocytes # 0.7 10*3/uL (0.11-0.8); Monocytes % 10.2 % (1.7-12.7); Neutrophils # 4.3 10*3/uL (1.4-7.4); Neutrophils % 67.7 % (38.7-73.9); Platelet Count 146 T/CUMM (130-400); Red Cell Distribution Width 14.5 % (9.3-17.3); White Blood Count 6.4 T/CUMM (4-12)
[2018-05-08 05:47] LABS: Calcium 8.3 MG/DL (8.5-10.1); Osmolality,Calculated 275.8 MOS/KG (273-304)
[2018-05-08 06:00] LABS: INR 1.9; PT Patient Result 19.9 SECS
[2018-05-08 06:18] LABS: Band Neutrophils 4 % (0-10); Eosinophils 1 % (0-10); Lymphocytes 24 % (20-55); Segmented Neutrophils 65 % (50-85); Total Cells Counted 100
[2018-05-08 06:19] LABS: Hypochromasia 1+; Platelet Estimate Normal
[2018-05-08 06:38] LABS: Polychromasia Few
[2018-05-08 06:39] LABS: Microcytosis 1+
[2018-05-08] MEDS: PARoxetine 10 MG TABLET PO SCH (09:09)
[2018-05-08] MEDS: metFORMIN 500 MG TABLET PO SCH ×2 (09:09→20:37)
[2018-05-08] MEDS: MAGNESIUM OXIDE 400 MG TABLET PO SCH (09:09)
[2018-05-08] MEDS: METOPROLOL SUCCINATE XL 25 MG TABLET PO SCH (09:09)
[2018-05-08] MEDS: ASPIRIN EC 81 MG TABLET PO SCH (09:10)
[2018-05-08] MEDS: POTASSIUM CHLORIDE 10 MEQ TABLET PO SCH (09:10)
[2018-05-08] MEDS: MULTIVITAMIN (CENTRUM) TABLET PO SCH (09:10)
[2018-05-08] MEDS: INSULIN REGULAR 100 UNIT/ML SUBCUT SCH ×4 (10:54→20:55)
[2018-05-08] MEDS: FUROSEMIDE 20 MG TABLET PO SCH (11:58)
[2018-05-08] MEDS: PANTOPRAZOLE 40 MG TABLET PO SCH (11:59)
[2018-05-08] MEDS: MAGNESIUM HYDROXIDE SUSP 30 ML UDCUP PO PRN (11:59)
[2018-05-08] MEDS: GABAPENTIN 300 MG CAPSULE PO SCH (17:13)
[2018-05-08] MEDS: WARFARIN 5 MG TABLET PO SCH (17:13)
[2018-05-08] MEDS: PRAVASTATIN 40 MG TABLET PO SCH (20:38)
[2018-05-08] MEDS: FERROUS SULFATE 325 MG TABLET PO SCH (20:38)
[2018-05-09] MEDS: VANCOMYCIN INJ 1,250 MG in SODIUM CHLORIDE 0.9% 250 ML IV SCH ×3 (00:41→22:06)
[2018-05-09 05:56] LABS: INR 3.2
[2018-05-09 09:36] LABS: PT Patient Result 32.7 SECS
[2018-05-09] MEDS: FUROSEMIDE 20 MG TABLET PO SCH (10:03)
[2018-05-09] MEDS: metFORMIN 500 MG TABLET PO SCH ×2 (10:03→22:05)
[2018-05-09] MEDS: METOPROLOL SUCCINATE XL 25 MG TABLET PO SCH (10:03)
[2018-05-09] MEDS: MULTIVITAMIN (CENTRUM) TABLET PO SCH (10:03)
[2018-05-09] MEDS: ASPIRIN EC 81 MG TABLET PO SCH (10:04)
[2018-05-09] MEDS: PANTOPRAZOLE 40 MG TABLET PO SCH (10:04)
[2018-05-09] MEDS: MAGNESIUM HYDROXIDE SUSP 30 ML UDCUP PO PRN (10:05)
[2018-05-09] MEDS: PARoxetine 10 MG TABLET PO SCH (10:05)
[2018-05-09] MEDS: INSULIN REGULAR 100 UNIT/ML SUBCUT SCH ×4 (10:05→22:02)
[2018-05-09] MEDS: MAGNESIUM OXIDE 400 MG TABLET PO SCH (10:12)
[2018-05-09] MEDS: POTASSIUM CHLORIDE 10 MEQ TABLET PO SCH (10:13)
[2018-05-09 13:37] LABS: Calcium 8.8 MG/DL (8.5-10.1); Osmolality,Calculated 263.5 MOS/KG (273-304); Potassium 3.8 MMOL/L (3.5-5.1)
[2018-05-09] MEDS: GABAPENTIN 300 MG CAPSULE PO SCH (17:28)
[2018-05-09] MEDS: NYSTATIN 500,000 UNIT/5 ML UDCUP SWISH/SWAL SCH ×2 (17:28→22:05)
[2018-05-09] MEDS: WARFARIN 4 MG TABLET PO SCH (17:28)
[2018-05-09] MEDS: FERROUS SULFATE 325 MG TABLET PO SCH (22:06)
[2018-05-09] MEDS: PRAVASTATIN 40 MG TABLET PO SCH (22:06)
[2018-05-10] MEDS: VANCOMYCIN INJ 1,250 MG in SODIUM CHLORIDE 0.9% 250 ML IV SCH ×2 (06:21→13:33)
[2018-05-10 07:12] LABS: INR 4.7
[2018-05-10 07:16] LABS: PT Patient Result 46.7 SECS
[2018-05-10] MEDS: INSULIN REGULAR 100 UNIT/ML SUBCUT SCH ×4 (09:05→22:32)
[2018-05-10] MEDS: MAGNESIUM HYDROXIDE SUSP 30 ML UDCUP PO PRN (09:53)
[2018-05-10] MEDS: POTASSIUM CHLORIDE 10 MEQ TABLET PO SCH (09:53)
[2018-05-10] MEDS: metFORMIN 500 MG TABLET PO SCH ×2 (09:53→21:15)
[2018-05-10] MEDS: NYSTATIN 500,000 UNIT/5 ML UDCUP SWISH/SWAL SCH ×4 (09:53→21:15)
[2018-05-10] MEDS: MULTIVITAMIN (CENTRUM) TABLET PO SCH (09:53)
[2018-05-10] MEDS: PANTOPRAZOLE 40 MG TABLET PO SCH (09:54)
[2018-05-10] MEDS: METOPROLOL SUCCINATE XL 25 MG TABLET PO SCH (09:54)
[2018-05-10] MEDS: ASPIRIN EC 81 MG TABLET PO SCH (09:54)
[2018-05-10] MEDS: PARoxetine 10 MG TABLET PO SCH (09:54)
[2018-05-10] MEDS: FUROSEMIDE 20 MG TABLET PO SCH (09:54)
[2018-05-10] MEDS: MAGNESIUM OXIDE 400 MG TABLET PO SCH (09:54)
[2018-05-10] MEDS ORDERED: LIDOCAINE 1% 20 ML VIAL MISC INJ ONE (16:23)
[2018-05-10] MEDS: WARFARIN 4 MG TABLET PO SCH (17:38)
[2018-05-10] MEDS: CLINDAMYCIN INJ 600 MG in PREMIX 1 EACH IV SCH (17:53)
[2018-05-10] MEDS: PENICILLIN G POTASSIUM INJ 2,000,000 UNIT in SODIUM CHLORIDE 0.9% 100 ML IV SCH ×2 (18:27→22:33)
[2018-05-10] MEDS: GABAPENTIN 300 MG CAPSULE PO SCH (18:27)
[2018-05-10 18:42] LABS: Neutrophils,Synovial Fluid 99 %
[2018-05-10] MEDS: PRAVASTATIN 40 MG TABLET PO SCH (21:15)
[2018-05-10] MEDS: FERROUS SULFATE 325 MG TABLET PO SCH (21:15)
[2018-05-10] MEDS: valACYclovir 500 MG TABLET PO SCH (21:15)
[2018-05-11] MEDS: CLINDAMYCIN INJ 600 MG in PREMIX 1 EACH IV SCH ×3 (01:11→17:41)
[2018-05-11] MEDS: PENICILLIN G POTASSIUM INJ 2,000,000 UNIT in SODIUM CHLORIDE 0.9% 100 ML IV SCH ×6 (01:58→21:26)
[2018-05-11 07:07] LABS: Basophils % 0.3 % (0.0-0.8); Eosinophils # 0.1 10*3/uL (0.0-0.87); Eosinophils % 1.7 % (0.00-10.9); Hematocrit 28.9 VOL% (42.0-52.0); Hemoglobin 9.7 GM/DL (14.0-18.0); Immature Granulocytes % 5.7 %; Immature Granulocytes Absolute 0.36 #; Lymphocytes # 1.1 10*3/uL (1.4-4.0); Lymphocytes % 17.9 % (21.2-54.2); Mean Corpuscular HGB Conc 33.6 GM/DL (32-36); Mean Corpuscular Hemoglobin 32 PG (27-34); Mean Corpuscular Volume 93.8 FL (87-102); Mean Platelet Volume 10.1 FL (9.6-12.0); Monocytes % 15.7 % (1.7-12.7); Neutrophils # 3.7 10*3/uL (1.4-7.4); Neutrophils % 58.7 % (38.7-73.9); Platelet Count 266 T/CUMM (130-400); Red Blood Count 3.08 MC/CUMM (3.8-5.5); Red Cell Distribution Width 14.1 % (9.3-17.3); White Blood Count 6.3 T/CUMM (4-12)
[2018-05-11 07:23] LABS: PT Patient Result 50.2 SECS
[2018-05-11 07:31] LABS: Calcium 8.4 MG/DL (8.5-10.1); Osmolality,Calculated 269.2 MOS/KG (273-304); Potassium 3.9 MMOL/L (3.5-5.1)
[2018-05-11 07:45] LABS: Band Neutrophils 3 % (0-10); Eosinophils 3 % (0-10); Hypochromasia 1+; Lymphocytes 23 % (20-55); Platelet Estimate Normal; Segmented Neutrophils 58 % (50-85); Total Cells Counted 100
[2018-05-11 07:46] LABS: Giant Platelets Few
[2018-05-11] MEDS: INSULIN REGULAR 100 UNIT/ML SUBCUT SCH ×4 (07:52→21:12)
[2018-05-11] MEDS ORDERED: SODIUM CHLORIDE 0.9% 1,000 ML IV PRN (08:48)
[2018-05-11] MEDS ORDERED: PHYTONADIONE 10 MG/1 ML AMP IV ONE (08:49)
[2018-05-11] MEDS: NYSTATIN 500,000 UNIT/5 ML UDCUP SWISH/SWAL SCH ×4 (09:45→21:11)
[2018-05-11] MEDS: PARoxetine 10 MG TABLET PO SCH (09:46)
[2018-05-11] MEDS: MULTIVITAMIN (CENTRUM) TABLET PO SCH (09:46)
[2018-05-11] MEDS: PANTOPRAZOLE 40 MG TABLET PO SCH (09:48)
[2018-05-11] MEDS: FUROSEMIDE 20 MG TABLET PO SCH (09:48)
[2018-05-11] MEDS: POTASSIUM CHLORIDE 10 MEQ TABLET PO SCH (09:48)
[2018-05-11] MEDS: valACYclovir 500 MG TABLET PO SCH (09:48)
[2018-05-11] MEDS: MAGNESIUM OXIDE 400 MG TABLET PO SCH (09:48)
[2018-05-11] MEDS: metFORMIN 500 MG TABLET PO SCH ×2 (09:54→21:11)
[2018-05-11] MEDS: ASPIRIN EC 81 MG TABLET PO SCH (09:56)
[2018-05-11] MEDS: METOPROLOL SUCCINATE XL 25 MG TABLET PO SCH (10:02)
[2018-05-11 13:39] LABS: INR 1.7; PT Patient Result 17.4 SECS
[2018-05-11] MEDS ORDERED: TOBRAMYCIN 1.2 GM VIAL TOP ONE (14:06)
[2018-05-11] MEDS ORDERED: VANCOMYCIN 1,000 MG VIAL ONE (14:06)
[2018-05-11] MEDS ORDERED: DEXTROSE 50% 25 GM/50 ML VIAL IV PRN (16:17)
[2018-05-11] MEDS ORDERED: GLUCAGON 1 MG VIAL IM PRN (16:17)
[2018-05-11] MEDS ORDERED: MORPHINE 4 MG/1 ML VIAL IV PRN (16:18)
[2018-05-11] MEDS ORDERED: PROPOFOL 200 MG/20 ML VIAL IV ONE (16:42)
[2018-05-11] MEDS ORDERED: DEXAMETHASONE 10 MG/1 ML VIAL ONE (16:42)
[2018-05-11] MEDS ORDERED: fentaNYL 100 MCG/2 ML VIAL ONE (16:42)
[2018-05-11] MEDS ORDERED: ALBUMIN 5% 12.5 GM/250 ML VIAL IV ONE (16:42)
[2018-05-11] MEDS ORDERED: SEVOFLURANE 1 UNIT/15 MINUTE INH ONE (16:42)
[2018-05-11] MEDS ORDERED: SODIUM CHLORIDE 0.9% 1,000 ML IV ONE (16:43)
[2018-05-11] MEDS ORDERED: ONDANSETRON 4 MG/2 ML VIAL ONE (16:43)
[2018-05-11] MEDS ORDERED: NEOSTIGMINE 10 MG/10 ML VIAL ONE (16:43)
[2018-05-11] MEDS ORDERED: ROCURONIUM 100 MG/10 ML VIAL IV ONE (16:43)
[2018-05-11] MEDS ORDERED: PHENYLEPHRINE 1 MG/10 ML SYRINGE IV ONE (16:43)
[2018-05-11] MEDS ORDERED: ETOMIDATE 40 MG/20 ML VIAL IV ONE (16:43)
[2018-05-11] MEDS ORDERED: SUCCINYLCHOLINE 200 MG/10 ML VIAL ONE (16:43)
[2018-05-11] MEDS: GABAPENTIN 300 MG CAPSULE PO SCH (17:41)
[2018-05-11] MEDS: WARFARIN 4 MG TABLET PO SCH (19:33)
[2018-05-11] MEDS ORDERED: NON-FORMULARY MEDICATION (Metformin Hcl [Metformin Hcl] 1,000 MG) PO SCH (21:00)
[2018-05-11] MEDS: PRAVASTATIN 40 MG TABLET PO SCH (21:11)
[2018-05-11] MEDS: FERROUS SULFATE 325 MG TABLET PO SCH (21:11)
[2018-05-12] MEDS: CLINDAMYCIN INJ 600 MG in PREMIX 1 EACH IV SCH ×3 (00:23→17:31)
[2018-05-12] MEDS: PENICILLIN G POTASSIUM INJ 2,000,000 UNIT in SODIUM CHLORIDE 0.9% 100 ML IV SCH ×6 (01:16→22:57)
[2018-05-12 06:44] LABS: Basophils % 0.1 % (0.0-0.8); Hematocrit 30.1 VOL% (42.0-52.0); Hemoglobin 10.2 GM/DL (14.0-18.0); Immature Granulocytes % 4.7 %; Immature Granulocytes Absolute 0.32 #; Lymphocytes # 1.1 10*3/uL (1.4-4.0); Lymphocytes % 15.5 % (21.2-54.2); Mean Corpuscular HGB Conc 33.9 GM/DL (32-36); Mean Corpuscular Hemoglobin 32 PG (27-34); Monocytes # 0.7 10*3/uL (0.11-0.8); Monocytes % 10.1 % (1.7-12.7); Neutrophils # 4.8 10*3/uL (1.4-7.4); Neutrophils % 69.6 % (38.7-73.9); Platelet Count 334 T/CUMM (130-400); Red Blood Count 3.17 MC/CUMM (3.8-5.5); Red Cell Distribution Width 13.7 % (9.3-17.3); White Blood Count 6.9 T/CUMM (4-12)
[2018-05-12 06:58] LABS: Calcium 8.5 MG/DL (8.5-10.1); Osmolality,Calculated 274.1 MOS/KG (273-304); Potassium 4.3 MMOL/L (3.5-5.1)
[2018-05-12] MEDS: INSULIN REGULAR 100 UNIT/ML SUBCUT SCH ×4 (09:29→20:37)
[2018-05-12 09:40] LABS: INR 1.1; PT Patient Result 11.8 SECS
[2018-05-12] MEDS: POTASSIUM CHLORIDE 10 MEQ TABLET PO SCH (09:44)
[2018-05-12] MEDS: ASPIRIN EC 81 MG TABLET PO SCH (09:44)
[2018-05-12] MEDS: PARoxetine 10 MG TABLET PO SCH (09:44)
[2018-05-12] MEDS: FUROSEMIDE 20 MG TABLET PO SCH (09:45)
[2018-05-12] MEDS: MAGNESIUM OXIDE 400 MG TABLET PO SCH (09:45)
[2018-05-12] MEDS: NYSTATIN 500,000 UNIT/5 ML UDCUP SWISH/SWAL SCH ×4 (09:45→20:36)
[2018-05-12] MEDS: MULTIVITAMIN (CENTRUM) TABLET PO SCH (09:45)
[2018-05-12] MEDS: PANTOPRAZOLE 40 MG TABLET PO SCH (09:45)
[2018-05-12] MEDS: METOPROLOL SUCCINATE XL 25 MG TABLET PO SCH (09:45)
[2018-05-12] MEDS: metFORMIN 500 MG TABLET PO SCH ×2 (09:45→20:40)
[2018-05-12] MEDS: WARFARIN 4 MG TABLET PO SCH (17:32)
[2018-05-12] MEDS: GABAPENTIN 300 MG CAPSULE PO SCH (17:33)
[2018-05-12] MEDS: FERROUS SULFATE 325 MG TABLET PO SCH (20:36)
[2018-05-12] MEDS: PRAVASTATIN 40 MG TABLET PO SCH (20:36)
[2018-05-12] MEDS: KETOCONAZOLE 2% CREAM 30 GM TUBE TOP SCH (20:41)
[2018-05-13] MEDS: CLINDAMYCIN INJ 600 MG in PREMIX 1 EACH IV SCH ×3 (01:53→18:01)
[2018-05-13] MEDS: PENICILLIN G POTASSIUM INJ 2,000,000 UNIT in SODIUM CHLORIDE 0.9% 100 ML IV SCH ×6 (03:51→23:51)
[2018-05-13 07:10] LABS: Basophils % 0.5 % (0.0-0.8); Eosinophils # 0.1 10*3/uL (0.0-0.87); Eosinophils % 1.7 % (0.00-10.9); Hematocrit 27.3 VOL% (42.0-52.0); Hemoglobin 9.4 GM/DL (14.0-18.0); Immature Granulocytes % 4.1 %; Immature Granulocytes Absolute 0.26 #; Lymphocytes # 1.4 10*3/uL (1.4-4.0); Lymphocytes % 22.4 % (21.2-54.2); Mean Corpuscular HGB Conc 34.4 GM/DL (32-36); Mean Corpuscular Hemoglobin 32 PG (27-34); Mean Corpuscular Volume 93.2 FL (87-102); Mean Platelet Volume 9.7 FL (9.6-12.0); Monocytes # 0.8 10*3/uL (0.11-0.8); Monocytes % 12.5 % (1.7-12.7); NRBC # 0.04 10*3/uL; Neutrophils # 3.7 10*3/uL (1.4-7.4); Neutrophils % 58.8 % (38.7-73.9); Platelet Count 420 T/CUMM (130-400); Red Blood Count 2.93 MC/CUMM (3.8-5.5); Red Cell Distribution Width 13.9 % (9.3-17.3); White Blood Count 6.3 T/CUMM (4-12)
[2018-05-13 07:17] LABS: INR 1.2; PT Patient Result 12.2 SECS; Partial Thromboplastin Time 33.8 SECS (0-40)
[2018-05-13 07:50] LABS: Calcium 8.6 MG/DL (8.5-10.1)
[2018-05-13] MEDS: PARoxetine 10 MG TABLET PO SCH (09:18)
[2018-05-13] MEDS: METOPROLOL SUCCINATE XL 25 MG TABLET PO SCH (09:18)
[2018-05-13] MEDS: MAGNESIUM HYDROXIDE SUSP 30 ML UDCUP PO PRN (09:18)
[2018-05-13] MEDS: POTASSIUM CHLORIDE 10 MEQ TABLET PO SCH (09:20)
[2018-05-13] MEDS: MAGNESIUM OXIDE 400 MG TABLET PO SCH (09:21)
[2018-05-13] MEDS: ASPIRIN EC 81 MG TABLET PO SCH (09:21)
[2018-05-13] MEDS: metFORMIN 500 MG TABLET PO SCH ×2 (09:21→20:24)
[2018-05-13] MEDS: PANTOPRAZOLE 40 MG TABLET PO SCH (09:22)
[2018-05-13] MEDS: FUROSEMIDE 20 MG TABLET PO SCH (09:22)
[2018-05-13] MEDS: NYSTATIN 500,000 UNIT/5 ML UDCUP SWISH/SWAL SCH ×4 (10:02→20:24)
[2018-05-13] MEDS: MULTIVITAMIN (CENTRUM) TABLET PO SCH (10:02)
[2018-05-13] MEDS: INSULIN REGULAR 100 UNIT/ML SUBCUT SCH ×4 (10:02→20:25)
[2018-05-13] MEDS: ENOXAPARIN 40 MG/0.4 ML SYRINGE SUBCUT SCH ×2 (13:35→23:51)
[2018-05-13] MEDS ORDERED: LEVOFLOXACIN 750 MG TABLET PO SCH (15:30)
[2018-05-13] MEDS: KETOCONAZOLE 2% CREAM 30 GM TUBE TOP SCH ×2 (16:10→20:25)
[2018-05-13] MEDS: WARFARIN 4 MG TABLET PO SCH (18:00)
[2018-05-13] MEDS: GABAPENTIN 300 MG CAPSULE PO SCH (18:01)
[2018-05-13] MEDS: PRAVASTATIN 40 MG TABLET PO SCH (20:24)
[2018-05-13] MEDS: FERROUS SULFATE 325 MG TABLET PO SCH (20:25)
[2018-05-14] MEDS: CLINDAMYCIN INJ 600 MG in PREMIX 1 EACH IV SCH ×2 (01:18→10:09)
[2018-05-14] MEDS: PENICILLIN G POTASSIUM INJ 2,000,000 UNIT in SODIUM CHLORIDE 0.9% 100 ML IV SCH ×3 (03:03→11:00)
[2018-05-14 07:58] LABS: Basophils # 0.1 10*3/uL (0.0-0.2); Basophils % 0.8 % (0.0-0.8); Eosinophils # 0.1 10*3/uL (0.0-0.87); Eosinophils % 1.3 % (0.00-10.9); Hematocrit 32.4 VOL% (42.0-52.0); Hemoglobin 11.1 GM/DL (14.0-18.0); Immature Granulocytes % 3.5 %; Immature Granulocytes Absolute 0.29 #; Lymphocytes # 1.3 10*3/uL (1.4-4.0); Lymphocytes % 15.2 % (21.2-54.2); Mean Corpuscular HGB Conc 34.3 GM/DL (32-36); Mean Corpuscular Hemoglobin 32 PG (27-34); Mean Corpuscular Volume 93.1 FL (87-102); Mean Platelet Volume 9.4 FL (9.6-12.0); Monocytes # 0.8 10*3/uL (0.11-0.8); Monocytes % 9.8 % (1.7-12.7); Neutrophils # 5.8 10*3/uL (1.4-7.4); Neutrophils % 69.4 % (38.7-73.9); Platelet Count 502 T/CUMM (130-400); Red Blood Count 3.48 MC/CUMM (3.8-5.5); Red Cell Distribution Width 13.6 % (9.3-17.3); White Blood Count 8.3 T/CUMM (4-12)
[2018-05-14 08:11] LABS: INR 1.3; PT Patient Result 13.1 SECS
[2018-05-14 08:20] LABS: Calcium 9.3 MG/DL (8.5-10.1); Osmolality,Calculated 269.2 MOS/KG (273-304); Potassium 4.3 MMOL/L (3.5-5.1)
[2018-05-14] MEDS: INSULIN REGULAR 100 UNIT/ML SUBCUT SCH (09:52)
[2018-05-14] MEDS: KETOCONAZOLE 2% CREAM 30 GM TUBE TOP SCH (09:52)
[2018-05-14] MEDS: POTASSIUM CHLORIDE 10 MEQ TABLET PO SCH (10:10)
[2018-05-14] MEDS: metFORMIN 500 MG TABLET PO SCH (10:10)
[2018-05-14] MEDS: PARoxetine 10 MG TABLET PO SCH (10:10)
[2018-05-14] MEDS: ASPIRIN EC 81 MG TABLET PO SCH (10:10)
[2018-05-14] MEDS: MAGNESIUM OXIDE 400 MG TABLET PO SCH (10:10)
[2018-05-14] MEDS: FUROSEMIDE 20 MG TABLET PO SCH (10:11)
[2018-05-14] MEDS: PANTOPRAZOLE 40 MG TABLET PO SCH (10:11)
[2018-05-14] MEDS: NYSTATIN 500,000 UNIT/5 ML UDCUP SWISH/SWAL SCH (10:11)
[2018-05-14] MEDS: MULTIVITAMIN (CENTRUM) TABLET PO SCH (10:11)
[2018-05-14] MEDS: METOPROLOL SUCCINATE XL 25 MG TABLET PO SCH (10:11)
[2018-05-14] MEDS: ENOXAPARIN 40 MG/0.4 ML SYRINGE SUBCUT SCH (11:00)
[2018-05-14 11:16] VITALS: BP 132/70
== END 2018-05-14 11:54 | DRG 463 ==
LOC: N.ED 13:19 → N.EDINP 16:23 → SUATTDRO 16:23 → N.EDINP 17:52 → N.5E 17:57
PROVIDERS: ATTEND Internal Medicine

== ENCOUNTER 2020-01-18 11:35 | Inpatient (IN) ==
[2020-01-18] MEDS ORDERED: SODIUM CHLORIDE 0.9% 500 ML IV STA (12:23)
[2020-01-18] MEDS ORDERED: VANCOMYCIN INJ 1,250 MG in SODIUM CHLORIDE 0.9% 250 ML IV STA (12:23)
[2020-01-18 12:42] LABS: Basophils % 0.4 % (0.0-0.8); Hematocrit 46.5 VOL% (42.0-52.0); Hemoglobin 15.1 GM/DL (14.0-18.0); Immature Granulocytes % 0.4 %; Immature Granulocytes Absolute 0.03 #; Lymphocytes # 1.5 10*3/uL (1.4-4.0); Lymphocytes % 18.1 % (21.2-54.2); Mean Corpuscular HGB Conc 32.5 GM/DL (32-36); Mean Corpuscular Volume 96.7 FL (87-102); Mean Platelet Volume 10.9 FL (9.6-12.0); Monocytes % 10.8 % (1.7-12.7); Neutrophils % 70.3 % (38.7-73.9); Platelet Count 179 T/CUMM (130-400); Red Blood Count 4.81 MC/CUMM (3.8-5.5); Red Cell Distribution Width 13.5 % (9.3-17.3); White Blood Count 8.2 T/CUMM (4-12)
[2020-01-18] MEDS ORDERED: VANCOMYCIN 1,000 MG VIAL ONE ×2 (12:55→13:10)
[2020-01-18 13:02] LABS: Bilirubin,Total 0.9 MG/DL (0.2-1.0); Calcium 9.4 MG/DL (8.5-10.1); Osmolality,Calculated 268.5 MOS/KG (273-304); Total Protein 8.3 G/DL (6.4-8.3)
[2020-01-18 13:22] LABS: Apearance,Urine CLEAR (Clear); Bilirubin,Urine Negative (Negative); Blood, Urine Small mg/dL (Negative); Glucose,Urine (UA) Negative (Negative); Ketones,Urine Negative (Negative); Mucus,Urine Occasional /LPF (Occasional); Nitrite,Urine Negative (Negative); Protein,Urine Negative; RBC,Urine 1 /HPF (0-4); Urine Color Yellow (Yellow); Urine Specific Gravity 1.011 (1.001-1.035); Urine Urobilinogen < 2.0 EU/DL (0.2-1.0)
[2020-01-18] MEDS ORDERED: SODIUM CHLORIDE 0.9% 1,000 ML IV STA (13:48)
[2020-01-18] MEDS ORDERED: ACETAMINOPHEN 325 MG TABLET PO PRN (14:34)
[2020-01-18] MEDS ORDERED: ONDANSETRON 4 MG/2 ML VIAL IV PRN (14:34)
[2020-01-18] MEDS ORDERED: GLUCAGON 1 MG VIAL IM PRN (14:53)
[2020-01-18] MEDS ORDERED: DEXTROSE 10% 25 GM/250 ML BAG IV PRN (14:53)
[2020-01-18] MEDS: SODIUM CHLORIDE 0.9% 1,000 ML IV SCH (18:31)
[2020-01-18] MEDS: INSULIN LISPRO 100 UNIT/ML SUBCUT SCH ×2 (19:50→21:53)
[2020-01-19 04:51] LABS: Basophils % 0.3 % (0.0-0.8); Hematocrit 39.1 VOL% (42.0-52.0); Hemoglobin 12.7 GM/DL (14.0-18.0); Immature Granulocytes % 0.2 %; Immature Granulocytes Absolute 0.01 #; Lymphocytes # 1.7 10*3/uL (1.4-4.0); Lymphocytes % 27.2 % (21.2-54.2); Mean Corpuscular HGB Conc 32.5 GM/DL (32-36); Mean Platelet Volume 11.5 FL (9.6-12.0); Monocytes % 13.3 % (1.7-12.7); Platelet Count 151 T/CUMM (130-400); Red Blood Count 3.99 MC/CUMM (3.8-5.5); Red Cell Distribution Width 13.4 % (9.3-17.3); White Blood Count 6.4 T/CUMM (4-12)
[2020-01-19 05:02] LABS: INR 1.7; PT Patient Result 18.7 SECS (9.6-12.2)
[2020-01-19 05:21] LABS: Calcium 8.2 MG/DL (8.5-10.1); Osmolality,Calculated 272.1 MOS/KG (273-304); Risk Ratio 3.42; Thyroid Stimulating Hormone 0.985 uIU/ml (0.358-3.74); VLDL CHOLESTEROL 33.4 MG/DL
[2020-01-19] MEDS: INSULIN LISPRO 100 UNIT/ML SUBCUT SCH ×4 (08:31→21:47)
[2020-01-19] MEDS ORDERED: PAROXETINE HCL 25 MG PO SCH (09:15)
[2020-01-19] MEDS: PANTOPRAZOLE 40 MG TABLET PO SCH (09:22)
[2020-01-19] MEDS: METOPROLOL SUCCINATE XL 25 MG TABLET PO SCH (09:22)
[2020-01-19] MEDS: POTASSIUM CHLORIDE 10 MEQ TABLET PO SCH (09:22)
[2020-01-19] MEDS: FUROSEMIDE 20 MG TABLET PO SCH (09:22)
[2020-01-19] MEDS: MULTIVITAMIN (CENTRUM) TABLET PO SCH (09:22)
[2020-01-19] MEDS: ASPIRIN EC 81 MG TABLET PO SCH (09:22)
[2020-01-19] MEDS: VANCOMYCIN INJ 1,250 MG in SODIUM CHLORIDE 0.9% 250 ML IV SCH (09:23)
[2020-01-19] MEDS: SODIUM CHLORIDE 0.9% 1,000 ML IV SCH (12:15)
[2020-01-19] MEDS: WARFARIN 10 MG TABLET PO SCH (18:38)
[2020-01-19] MEDS: SIMVASTATIN 20 MG TABLET PO SCH (21:47)
[2020-01-19] MEDS: CYANOCOBALAMIN 500 MCG TABLET PO SCH (21:47)
[2020-01-19] MEDS: FERROUS SULFATE 325 MG TABLET PO SCH (21:47)
[2020-01-20 04:38] LABS: Eosinophils # 0.2 10*3/uL (0.0-0.87); Eosinophils % 3.7 % (0.00-10.9); Hematocrit 36.3 VOL% (42.0-52.0); Hemoglobin 12.1 GM/DL (14.0-18.0); Lymphocytes # 1.9 10*3/uL (1.4-4.0); Lymphocytes % 46.6 % (21.2-54.2); Mean Corpuscular HGB Conc 33.3 GM/DL (32-36); Mean Corpuscular Volume 95.5 FL (87-102); Mean Platelet Volume 11.4 FL (9.6-12.0); Monocytes % 15.7 % (1.7-12.7); Platelet Count 145 T/CUMM (130-400); Red Cell Distribution Width 13.3 % (9.3-17.3)
[2020-01-20 04:39] LABS: INR 1.4; PT Patient Result 15.6 SECS (9.6-12.2)
[2020-01-20 04:58] LABS: Calcium 8.4 MG/DL (8.5-10.1); Osmolality,Calculated 277.7 MOS/KG (273-304)
[2020-01-20 05:12] LABS: Band Neutrophils 1 % (0-10); Eosinophils 5 % (0-10); Lymphocytes 44 % (20-55); Platelet Estimate Adequate; Segmented Neutrophils 38 % (50-85); Total Cells Counted 100
[2020-01-20 05:13] LABS: Hypochromasia 1+
[2020-01-20] MEDS: INSULIN LISPRO 100 UNIT/ML SUBCUT SCH ×4 (08:27→21:12)
[2020-01-20] MEDS: PANTOPRAZOLE 40 MG TABLET PO SCH (09:45)
[2020-01-20] MEDS: FUROSEMIDE 20 MG TABLET PO SCH (09:45)
[2020-01-20] MEDS: ASPIRIN EC 81 MG TABLET PO SCH (09:46)
[2020-01-20] MEDS: MULTIVITAMIN (CENTRUM) TABLET PO SCH (09:46)
[2020-01-20] MEDS: POTASSIUM CHLORIDE 10 MEQ TABLET PO SCH (09:46)
[2020-01-20] MEDS: METOPROLOL SUCCINATE XL 25 MG TABLET PO SCH (09:49)
[2020-01-20] MEDS: VANCOMYCIN INJ 1,250 MG in SODIUM CHLORIDE 0.9% 250 ML IV SCH (09:50)
[2020-01-20] MEDS: WARFARIN 10 MG TABLET PO SCH (19:23)
[2020-01-20] MEDS ORDERED: PAROXETINE HCL 25 MG PO SCH (21:00)
[2020-01-20] MEDS: SIMVASTATIN 20 MG TABLET PO SCH (21:10)
[2020-01-20] MEDS: CYANOCOBALAMIN 500 MCG TABLET PO SCH (21:10)
[2020-01-20] MEDS: FERROUS SULFATE 325 MG TABLET PO SCH (21:10)
[2020-01-21 06:59] LABS: Basophils % 0.6 % (0.0-0.8); Eosinophils # 0.3 10*3/uL (0.0-0.87); Eosinophils % 7.7 % (0.00-10.9); Hematocrit 37.4 VOL% (42.0-52.0); Hemoglobin 12.5 GM/DL (14.0-18.0); Immature Granulocytes % 0.3 %; Immature Granulocytes Absolute 0.01 #; Lymphocytes # 1.8 10*3/uL (1.4-4.0); Lymphocytes % 49.3 % (21.2-54.2); Mean Corpuscular HGB Conc 33.4 GM/DL (32-36); Mean Corpuscular Volume 95.4 FL (87-102); Mean Platelet Volume 11.5 FL (9.6-12.0); Monocytes % 11.3 % (1.7-12.7); Neutrophils % 30.8 % (38.7-73.9); Platelet Count 164 T/CUMM (130-400); Red Blood Count 3.92 MC/CUMM (3.8-5.5); Red Cell Distribution Width 13.2 % (9.3-17.3); White Blood Count 3.6 T/CUMM (4-12)
[2020-01-21 07:15] LABS: Calcium 8.4 MG/DL (8.5-10.1); Osmolality,Calculated 278.7 MOS/KG (273-304)
[2020-01-21 07:54] LABS: INR 1.7; PT Patient Result 18.1 SECS (9.6-12.2)
[2020-01-21] MEDS: VANCOMYCIN INJ 1,250 MG in SODIUM CHLORIDE 0.9% 250 ML IV SCH (08:33)
[2020-01-21] MEDS: FUROSEMIDE 20 MG TABLET PO SCH (08:34)
[2020-01-21] MEDS: PANTOPRAZOLE 40 MG TABLET PO SCH (08:34)
[2020-01-21] MEDS: POTASSIUM CHLORIDE 10 MEQ TABLET PO SCH (08:34)
[2020-01-21] MEDS: ASPIRIN EC 81 MG TABLET PO SCH (08:34)
[2020-01-21] MEDS: METOPROLOL SUCCINATE XL 25 MG TABLET PO SCH (08:34)
[2020-01-21] MEDS: MULTIVITAMIN (CENTRUM) TABLET PO SCH (08:34)
[2020-01-21] MEDS: INSULIN LISPRO 100 UNIT/ML SUBCUT SCH ×2 (10:28→13:13)
[2020-01-21 11:29] LABS: Atypical Lymphocytes Few; Band Neutrophils 2 % (0-10); Eosinophils 7 % (0-10); Lymphocytes 38 % (20-55); Platelet Estimate Adequate; Reactive Lymphocytes Few; Segmented Neutrophils 46 % (50-85); Total Cells Counted 100
[2020-01-21 12:17] VITALS: BP 114/71
[2020-01-25] MEDS ORDERED: WARFARIN 5 MG TABLET PO SCH (18:00)
== END 2020-01-21 13:00 | disposition home or self-care (01) | DRG 603 ==
LOC: N.ED 11:35 → N.EDINP 14:32 → N.3E 16:31
PROVIDERS: ADMIT Internal Medicine; ATTEND Internal Medicine

== ENCOUNTER 2020-02-04 05:13 | Observation (INO) ==
[2020-02-04] MEDS ORDERED: VANCOMYCIN INJ 1,250 MG in SODIUM CHLORIDE 0.9% 250 ML IV STA (06:16)
[2020-02-04 06:38] LABS: Basophils % 0.5 % (0.0-0.8); Eosinophils # 0.1 10*3/uL (0.0-0.87); Hematocrit 38.1 VOL% (42.0-52.0); Hemoglobin 12.6 GM/DL (14.0-18.0); Immature Granulocytes % 0.3 %; Immature Granulocytes Absolute 0.03 #; Lymphocytes # 2.1 10*3/uL (1.4-4.0); Lymphocytes % 23.7 % (21.2-54.2); Mean Corpuscular HGB Conc 33.1 GM/DL (32-36); Mean Corpuscular Volume 96.5 FL (87-102); Mean Platelet Volume 11.5 FL (9.6-12.0); Monocytes % 10.2 % (1.7-12.7); Neutrophils % 64.3 % (38.7-73.9); Platelet Count 164 T/CUMM (130-400); Red Blood Count 3.95 MC/CUMM (3.8-5.5); Red Cell Distribution Width 13.4 % (9.3-17.3); White Blood Count 8.8 T/CUMM (4-12)
[2020-02-04] MEDS ORDERED: VANCOMYCIN 1,000 MG VIAL ONE (07:03)
[2020-02-04] MEDS ORDERED: SODIUM CHLORIDE 0.9% 1,000 ML IV STA (07:15)
[2020-02-04 07:48] LABS: Sedimentation Rate-Westergren 21 MM/HR (0-20)
[2020-02-04 08:17] LABS: Calcium 8.8 MG/DL (8.5-10.1); Osmolality,Calculated 278.8 MOS/KG (273-304)
[2020-02-04] MEDS ORDERED: ALBUTEROL 2.5 MG/3 ML NEB RESP TX PRN (11:00)
[2020-02-04] MEDS ORDERED: ACETAMINOPHEN 325 MG TABLET PO PRN (11:00)
[2020-02-04] MEDS ORDERED: ONDANSETRON 4 MG/2 ML VIAL IV PRN (11:00)
[2020-02-04] MEDS ORDERED: hydrALAZINE 20 MG/1 ML VIAL IV PRN (11:08)
[2020-02-04] MEDS ORDERED: GLUCAGON 1 MG VIAL IM PRN (13:54)
[2020-02-04] MEDS ORDERED: DEXTROSE 10% 250 ML BAG IV PRN (13:54)
[2020-02-04] MEDS: LACTULOSE 20 GM/30 ML UDCUP PO SCH ×3 (14:29→22:18)
[2020-02-04] MEDS: methylPREDNISolone SOD SUC 40 MG/1 ML VIAL IV SCH (14:30)
[2020-02-04 14:33] LABS: INR 2.1
[2020-02-04 14:36] LABS: PT Patient Result 22.9 SECS (9.6-12.2)
[2020-02-04] MEDS ORDERED: WARFARIN 5 MG TABLET PO SCH (18:00)
[2020-02-04] MEDS: INSULIN REGULAR 100 UNIT/ML SUBCUT SCH ×2 (18:42→22:21)
[2020-02-04] MEDS ORDERED: SIMVASTATIN 20 MG TABLET PO SCH (21:00)
[2020-02-04] MEDS ORDERED: FERROUS SULFATE 325 MG TABLET PO SCH (21:00)
[2020-02-04] MEDS ORDERED: CYANOCOBALAMIN 500 MCG TABLET PO SCH (21:00)
[2020-02-05] MEDS ORDERED: VANCOMYCIN INJ 1,250 MG in SODIUM CHLORIDE 0.9% 250 ML IV SCH
[2020-02-05] MEDS: LACTULOSE 20 GM/30 ML UDCUP PO SCH ×4 (01:41→10:13)
[2020-02-05 04:46] LABS: Basophils % 0.1 % (0.0-0.8); Hematocrit 36.5 VOL% (42.0-52.0); Hemoglobin 12.1 GM/DL (14.0-18.0); Immature Granulocytes % 0.3 %; Immature Granulocytes Absolute 0.03 #; Lymphocytes # 1.8 10*3/uL (1.4-4.0); Lymphocytes % 17.9 % (21.2-54.2); Mean Corpuscular HGB Conc 33.2 GM/DL (32-36); Mean Corpuscular Volume 96.3 FL (87-102); Mean Platelet Volume 12.1 FL (9.6-12.0); Neutrophils % 73.7 % (38.7-73.9); Platelet Count 161 T/CUMM (130-400); Red Blood Count 3.79 MC/CUMM (3.8-5.5); Red Cell Distribution Width 13.3 % (9.3-17.3)
[2020-02-05 05:03] LABS: INR 2.3
[2020-02-05 05:10] LABS: PT Patient Result 24.6 SECS (9.6-12.2)
[2020-02-05 05:24] LABS: Calcium 9.2 MG/DL (8.5-10.1)
[2020-02-05 05:40] LABS: Risk Ratio 2.96; VLDL CHOLESTEROL 21.6 MG/DL
[2020-02-05 08:42] VITALS: BP 145/78
[2020-02-05] MEDS: INSULIN REGULAR 100 UNIT/ML SUBCUT SCH (08:42)
[2020-02-05] MEDS ORDERED: ASPIRIN EC 81 MG TABLET PO SCH (09:00)
[2020-02-05] MEDS ORDERED: PAROXETINE HCL 25 MG PO SCH (09:00)
[2020-02-05] MEDS ORDERED: PANTOPRAZOLE 40 MG TABLET PO SCH (09:00)
[2020-02-05] MEDS ORDERED: METOPROLOL SUCCINATE XL 25 MG TABLET PO SCH (09:00)
[2020-02-05] MEDS ORDERED: MULTIVITAMIN (CENTRUM) TABLET PO SCH (09:00)
[2020-02-05] MEDS ORDERED: FUROSEMIDE 20 MG TABLET PO SCH (09:00)
[2020-02-05] MEDS ORDERED: POTASSIUM CHLORIDE 10 MEQ TABLET PO SCH (09:00)
[2020-02-05] MEDS: methylPREDNISolone SOD SUC 40 MG/1 ML VIAL IV SCH (09:46)
[2020-02-05] MEDS ORDERED: CLINDAMYCIN 300 MG CAPSULE PO SCH (14:00)
[2020-02-06] MEDS ORDERED: predniSONE 20 MG TABLET PO SCH (09:00)
[2020-02-08] MEDS ORDERED: WARFARIN 5 MG TABLET PO SCH (18:00)
== END 2020-02-05 11:52 | disposition home or self-care (01) ==
LOC: N.ED 05:13 → N.EDINP 05:13 → N.5E 11:52
PROVIDERS: ADMIT Internal Medicine; ATTEND Internal Medicine

== ENCOUNTER 2020-02-12 19:21 | Observation (INO) ==
[2020-02-12] MEDS ORDERED: cefTRIAXone 1,000 MG in SODIUM CHLORIDE 0.9% 100 ML IV STA (19:48)
[2020-02-12 20:14] LABS: Basophils % 0.3 % (0.0-0.8); Eosinophils # 0.1 10*3/uL (0.0-0.87); Eosinophils % 1.8 % (0.00-10.9); Hematocrit 40.8 VOL% (42.0-52.0); Hemoglobin 13.2 GM/DL (14.0-18.0); Immature Granulocytes % 0.4 %; Immature Granulocytes Absolute 0.03 #; Lymphocytes # 2.2 10*3/uL (1.4-4.0); Lymphocytes % 30.1 % (21.2-54.2); Mean Corpuscular HGB Conc 32.4 GM/DL (32-36); Mean Corpuscular Volume 98.6 FL (87-102); Mean Platelet Volume 10.6 FL (9.6-12.0); Monocytes % 11.9 % (1.7-12.7); Neutrophils % 55.5 % (38.7-73.9); Platelet Count 228 T/CUMM (130-400); Red Blood Count 4.14 MC/CUMM (3.8-5.5); Red Cell Distribution Width 13.4 % (9.3-17.3); White Blood Count 7.2 T/CUMM (4-12)
[2020-02-12 20:29] LABS: Calcium 8.8 MG/DL (8.5-10.1); Osmolality,Calculated 281.1 MOS/KG (273-304)
[2020-02-12] MEDS ORDERED: INSULIN REGULAR 100 UNIT/ML SUBCUT STA (21:28)
[2020-02-12] MEDS ORDERED: VANCOMYCIN INJ 1,000 MG in SODIUM CHLORIDE 0.9% 250 ML IV STA (21:50)
[2020-02-13] MEDS ORDERED: GLUCAGON 1 MG VIAL IM PRN (01:41)
[2020-02-13] MEDS ORDERED: MORPHINE 4 MG/1 ML VIAL IV PRN (01:41)
[2020-02-13] MEDS ORDERED: ONDANSETRON 4 MG/2 ML VIAL IV PRN (01:41)
[2020-02-13] MEDS ORDERED: ACETAMINOPHEN 325 MG TABLET PO PRN (01:41)
[2020-02-13] MEDS ORDERED: DOCUSATE SODIUM 100 MG CAPSULE PO PRN (01:41)
[2020-02-13] MEDS ORDERED: DEXTROSE 50% 25 GM/50 ML VIAL IV PRN (01:41)
[2020-02-13] MEDS: SODIUM CHLORIDE 0.9% 1,000 ML IV SCH ×3 (01:59→23:00)
[2020-02-13 03:39] LABS: Basophils % 0.6 % (0.0-0.8); Eosinophils # 0.1 10*3/uL (0.0-0.87); Eosinophils % 1.4 % (0.00-10.9); Hematocrit 38.8 VOL% (42.0-52.0); Hemoglobin 12.7 GM/DL (14.0-18.0); Immature Granulocytes % 0.4 %; Immature Granulocytes Absolute 0.03 #; Lymphocytes # 2.7 10*3/uL (1.4-4.0); Mean Corpuscular HGB Conc 32.7 GM/DL (32-36); Mean Corpuscular Volume 98.7 FL (87-102); Mean Platelet Volume 10.8 FL (9.6-12.0); Monocytes % 13.1 % (1.7-12.7); Neutrophils % 47.5 % (38.7-73.9); Platelet Count 195 T/CUMM (130-400); Red Blood Count 3.93 MC/CUMM (3.8-5.5); Red Cell Distribution Width 13.3 % (9.3-17.3); White Blood Count 7.2 T/CUMM (4-12)
[2020-02-13 03:50] LABS: Calcium 8.4 MG/DL (8.5-10.1); Osmolality,Calculated 280.7 MOS/KG (273-304)
[2020-02-13] MEDS: INSULIN LISPRO 100 UNIT/ML SUBCUT SCH ×4 (08:49→20:49)
[2020-02-13] MEDS: POTASSIUM CHLORIDE 10 MEQ TABLET PO SCH (09:47)
[2020-02-13] MEDS: FUROSEMIDE 20 MG TABLET PO SCH (09:48)
[2020-02-13] MEDS: MULTIVITAMIN (CENTRUM) TABLET PO SCH (09:48)
[2020-02-13] MEDS: METOPROLOL SUCCINATE XL 25 MG TABLET PO SCH (09:48)
[2020-02-13] MEDS: PANTOPRAZOLE 40 MG TABLET PO SCH (09:48)
[2020-02-13] MEDS: ASPIRIN EC 81 MG TABLET PO SCH (09:48)
[2020-02-13] MEDS: VANCOMYCIN INJ 1,500 MG in SODIUM CHLORIDE 0.9% 500 ML IV SCH (12:03)
[2020-02-13 14:23] LABS: INR 3.5
[2020-02-13 14:34] LABS: PT Patient Result 37.1 SECS (9.6-12.2)
[2020-02-13] MEDS ORDERED: WARFARIN 10 MG TABLET PO SCH (18:00)
[2020-02-13] MEDS ORDERED: SIMVASTATIN 20 MG TABLET PO SCH (21:00)
[2020-02-13] MEDS ORDERED: PAROXETINE HCL 25 MG PO SCH (21:00)
[2020-02-13] MEDS ORDERED: CYANOCOBALAMIN 500 MCG TABLET PO SCH (21:00)
[2020-02-13] MEDS ORDERED: FERROUS SULFATE 325 MG TABLET PO SCH (21:00)
[2020-02-14] MEDS: VANCOMYCIN INJ 1,500 MG in SODIUM CHLORIDE 0.9% 500 ML IV SCH (03:58)
[2020-02-14 05:57] LABS: Basophils % 0.6 % (0.0-0.8); Eosinophils # 0.2 10*3/uL (0.0-0.87); Hematocrit 37.9 VOL% (42.0-52.0); Hemoglobin 12.4 GM/DL (14.0-18.0); Immature Granulocytes % 0.4 %; Immature Granulocytes Absolute 0.02 #; Lymphocytes # 2.3 10*3/uL (1.4-4.0); Mean Corpuscular HGB Conc 32.7 GM/DL (32-36); Mean Corpuscular Volume 96.4 FL (87-102); Mean Platelet Volume 11.2 FL (9.6-12.0); Monocytes % 10.4 % (1.7-12.7); Neutrophils % 39.6 % (38.7-73.9); Platelet Count 185 T/CUMM (130-400); Red Blood Count 3.93 MC/CUMM (3.8-5.5); Red Cell Distribution Width 13.3 % (9.3-17.3)
[2020-02-14 06:19] LABS: INR 2.7; PT Patient Result 29.4 SECS (9.6-12.2)
[2020-02-14 06:25] LABS: Calcium 8.7 MG/DL (8.5-10.1); Osmolality,Calculated 279.8 MOS/KG (273-304)
[2020-02-14] MEDS: INSULIN LISPRO 100 UNIT/ML SUBCUT SCH ×2 (07:45→12:51)
[2020-02-14] MEDS: METOPROLOL SUCCINATE XL 25 MG TABLET PO SCH (08:29)
[2020-02-14] MEDS: ASPIRIN EC 81 MG TABLET PO SCH (08:29)
[2020-02-14] MEDS: MULTIVITAMIN (CENTRUM) TABLET PO SCH (08:29)
[2020-02-14] MEDS: FUROSEMIDE 20 MG TABLET PO SCH (08:29)
[2020-02-14] MEDS: POTASSIUM CHLORIDE 10 MEQ TABLET PO SCH (08:30)
[2020-02-14] MEDS: PANTOPRAZOLE 40 MG TABLET PO SCH (08:30)
[2020-02-14 11:51] VITALS: BP 112/59
[2020-02-14] MEDS ORDERED: AMOXICILLIN/CLAV 875 MG TABLET PO SCH (21:00)
[2020-02-14] MEDS ORDERED: CHLORHEXIDINE 0.12% ORAL RINSE 60 ML BOTTLE SWISH/SPIT SCH (21:00)
[2020-02-15] MEDS ORDERED: WARFARIN 5 MG TABLET PO SCH (18:00)
== END 2020-02-14 13:40 | disposition home or self-care (01) ==
LOC: N.ED 19:21 → N.EDINP 19:21 → N.3E 02-13 00:55
PROVIDERS: ADMIT Internal Medicine; ATTEND Internal Medicine